=== PATIENT | male | born 1945 | race Caucasian/White ===

== ENCOUNTER 2020-11-14 12:32 | Outpatient (REF) | payer MEDICARE, SELFPAY ==
[2020-11-14 13:58] LABS: Alanine Aminotransferase 69 U/L (0-40); Anion Gap 15 (12-20); Aspartate Amino Transferase 47 U/L (5-37); Blood Urea Nitrogen 18 mg/dL (9-16); Carbon Dioxide 27 mmol/L (22-29); Chloride 100 mmol/L (96-108); Estimated Glomerular Filt Rate > 60; Potassium 4.1 mmol/l (3.3-5.1); Sodium 138 mmol/L (135-145)
== END 2020-11-14 12:33 | disposition home or self-care (01) ==
LOC: HO.10HDL 12:32
PROVIDERS: Visit Provider Family Medicine
DX: R35.0 Frequency of micturition (principal); K75.81 Nonalcoholic steatohepatitis (NASH)
CPT/HCPCS: 36415; 80051; 82565; 84450; 84460; 84520

== ENCOUNTER 2021-01-05 09:21 | Emergency (ER) | payer MEDICARE, SELFPAY ==
--- NOTE | ~2021-01-05 | XR_ITS ---
EXAMINATION: XR CHEST CLINICAL INFORMATION: SOB. COMPARISON: Chest 07/06/2014 TECHNIQUE: Frontal view of the chest was obtained. FINDINGS: The lungs are well-expanded and clear of acute pneumonic process. Incidental finding of a right azygos lobe noted. The heart size and pulmonary vascularity is normal. There are mediastinal jose and median sternotomy sutures from previous intervention. No gross bony abnormality seen. XR/XR chest 1V IMPRESSION: Unremarkable chest exam.
[2021-01-05 09:34] VITALS: BP 177/92; PULSE 82; RESP 16; TEMP 37.5; O2SAT 95; BMI 31.0
--- NOTE | 2021-01-05 10:01 | ECG_ITS ---
Test Reason : SOB Blood Pressure : / mmHG Vent. Rate : 060 BPM Atrial Rate : 060 BPM P-R Int : 162 ms QRS Dur : 094 ms QT Int : 464 ms P-R-T Axes : 058 044 061 degrees QTc Int : 464 ms Normal sinus rhythm Normal ECG When compared with ECG of 25-FEB-2012 08:26, No significant change was found Referred By: Shelly Naylor Electronically Signed By:RAYMOND CHAN MD
[2021-01-05 10:38] LABS: MANUAL DIFF FLAG NO
[2021-01-05 10:40] LABS: Basophils Percent Auto 0.2 % (0-2); Eosinophils Absolute Auto 0.1 X10*3/uL (0.0-0.4); Eosinophils Percent Auto 0.7 % (0-4); Hematocrit 42.9 % (42-52); Hemoglobin 14.6 g/dl (14.0-18.0); Imm Gran Abs Auto 0.02 X10*3/uL (0.00-0.03); Imm Gran Pct Auto 0.2 % (0.0-0.4); Lymphocytes Absolute Auto 2.3 X10*3/uL (1.2-4.9); Lymphocytes Percent Auto 27.9 % (20-40); Mean Corpuscular Hemoglobin 27.4 pg (27.0-33.0); Mean Corpuscular Volume 80.6 fL (80-98); Mean Platelet Volume 8.7 fL (9.4-12.4); Monocytes Absolute Auto 0.8 X10*3/uL (0.1-1.2); Monocytes Percent Auto 9.2 % (2-11); Neutrophils Percent Auto 61.8 % (45-73); Platelet Count 212 X10*3/uL (160-400); Red Blood Count 5.32 X10*6/uL (4.60-5.80); Red Cell Distribution Width 13.2 % (11.0-16.0); White Blood Count 8.1 X10*3/uL (4.8-10.8)
[2021-01-05 10:50] LABS: INTERNATIONAL NORM RATIO 1.1 (0.9-1.1)
--- NOTE | 2021-01-05 10:52 | ED_ITS ---
HPI - URI/Sore Throat General Chief Complaint: Dyspnea Stated Complaint: sob,phlegm Time Seen by Provider: 01/05/21 09:39 Source: patient Mode of arrival: ambulatory Limitations: no limitations History of Present Illness HPI Narrative: 75-year-old male with a past medical history of cardiovascular disease and hypertension presenting to the ED with complaints of a few days less than a week of nasal congestion, sore throat, productive cough with posttussive emesis and shortness of breath worse today. Reports associated frontal forehead headache. Nothing makes the headache better or worse. Denies recent travel or sick contacts. Denies dizziness, lightheadedness, changes in vision, trouble swallowing, chest pain, dyspnea on exertion, orthopnea, palpitations, any symptoms such as nausea/vomiting/abdominal pain/diarrhea or constipation, or lower extremity swelling. MD elicited complaint: cough, sore throat and nasal congestion Onset (ago): day(s) (Few days worse today) Consistency: constant Severity: moderate Description of mucous: clear, watery and yellow Able to tolerate fluids by mouth: Yes Exacerbating factors: swallowing and deep breaths Relieving factors: nothing Associated symptoms: headache, rhinorrhea, nasal congestion, sore throat, cough and shortness of breath Treatments prior to arrival: none Related Data Previous Rx's Medication Instructions Recorded doxycycline hyclate 100 mg PO BID 10 Days #20 tab 01/05/21 fluticasone propionate [Flonase 1 spray INTRANASAL BID 10 Days #16 01/05/21 Allergy Relief] g loratadine [Claritin] 10 mg PO DAILY PRN #10 tab 01/05/21 Allergies Allergy/AdvReac Type Severity Reaction Status Date / Time No Known Allergies Allergy Unverified 07/14/20 14:56 [No Known Allergies*] Review of Systems Review of Systems: Constitutional : No Fever, No Chills, No Night Sweats, No Fatigue, No Malaise, no history of PE or DVT, denies recent travel, ENT/Mouth : + Ear Pain, + Nasal Congestion, + Sinus Pain, + Sore throat, + Rhinorrhea, No Hoarseness, No Swallowing Difficulty, No Hearing loss Eyes: No Eye Pain, No Swelling, No Redness, No Foreign Body, No Discharge, No Vision Changes Cardiovascular : + SOB, No Chest Pain, no Dyspnea on Exertion, No Orthopnea, No Edema, No extremity swelling, No Palpitations Respiratory : + Cough, + Sputum, No Wheezing Gastrointestinal : No Nausea, No Vomiting, No Diarrhea, No abdominal Pain, No Hematochezia, No Melena Genitourinary : No irregular bleeding, No Dysuria, No Urinary Frequency, No Hematuria, No Urinary Incontinence, No Urgency, No Flank Pain, No Urinary Flow Changes, No Hesitancy Musculoskeletal : No joint pain, No Myalgias, No Joint Swelling Skin : No Skin Lesions, No rash Neuro : No Weakness, No Numbness, No Paresthesias, No Loss of Consciousness, No Dizziness, No Headache Psych : No Anxiety/Panic, No Depression, No SI/HI/AH/VH Heme/Lymph: No Bruising, No Bleeding,No Lymphadenopathy Endocrine : No Polyuria, No Polydipsia, No Temperature Intolerance Yes all other systems are reviewed and are negative [facility] Past Medical History Attestation statement: The following information was validated with the patient. Social History Social History Advance Directives: No Advance Directives Information Provided: No Physical Exam Vital Signs: Vital Signs: Last Vital Signs Temp 98.2 F 01/05/21 14:10 Pulse 60 01/05/21 14:10 Resp 14 01/05/21 14:10 BP 166/96 H 01/05/21 14:10 Pulse Ox 95 01/05/21 14:10 Body Mass Index 31.0 Vital signs have been reviewed as normal and appeared to be correct. Blood pressure hypertensive at 177/92. Heart rate normal. Respiration rate normal. Temperature normal. Oxygen saturation normal. Appearance: Alert. Oriented X3. No acute distress. Head: Normal external exam. Normocephalic. Atraumatic. Able to rotate head bilaterally. Eyes: PERRLA. EOMI. No nystagmus noted. Conjunctiva and sclera normal. Eyelids normal. Corneal reflex normal. ENT: EAC normal. TM's Normal. Hearing normal. Pharynx mildly erythematous otherwise no exudate noted. Uvula midline. tongue midline. Moist mucous membranes. No trismus noted. No drooling noted. No muffled voice noted. Neck: Normal inspection. Neck supple. FROM. No adenopathy. Thyroid Normal. No meningeal signs. No neck mass noted. CVS: Normal heart rate and rhythm. Heart sound normal. No murmurs noted. Pulses normal throughout. Respiratory: No respiratory distress. Painless inspiration. Breath sounds norm al. No wheezes/rales/rhonchi noted. Chest nontender. No accessory muscle usage noted or decreased air movement noted. Back: Full range of motion noted. Skin: Skin warm and dry. Normal skin color. Normal skin turgor. No rashes/lesions/lacerations noted. Extremities: No lower extremity edema noted. No calf tenderness noted. Extremities exhibit normal range of motion. Extremities nontender. Able to shrug shoulders bilaterally and keep up against resistance. Neuro: Oriented X 3. No motor deficit. No sensory deficit. Reflexes normal. Moving all extremities. No focal motor deficits. Cranial nerves II-XI intact bilaterally. Facial strength normal. Normal cognition. Speech normal. Gait normal. Strength 5/5 throughout. No pronator drift. No tremor noted. No fasciculations noted. Muscle tone normal throughout. Course Course Course Narrative: 10:30am - 75-year-old male with a past medical history of cardiovascular disease and hypertension presenting to the ED with complaints of a few days of intermittent frontal headaches nasal congestion, sore throat, productive cough with post tussive emesis and shortness of breath worse today. - on exam patient is alert and oriented x3. Not in any acute distress. Mildly hypertensive otherwise all other vitals are within normal limits. Neuro exam is within normal limits no focal neuro deficits noted. Lungs clear to auscultation. CV RRR. Abdomen is soft and nontender. No lower extremity edema or calf tenderness noted. - Labs, CXR, COVID/RSV/FLU SWAB, EKG and re-evaluate. Reevaluation(s) Reevaluation #1: - patient had an elevated troponin at 7.5 although negative delta after 3 hours at 7.8 - mild elevation AST/ALT and BUN otherwise all other labs are within normal limits. - COVID/RSV/flu negative. - UA within normal limits no evidence of UTI. - chest x-ray negative for any acute processes noted. - EKG normal sinus rhythm with ventricular rate of 60 with a normal WI interval normal QRS duration normal QT/QTC interval no acute ischemic changes and similar when compared to prior EKG 02/25/2012. - therefore patient most likely bronchitis/sinus infection. Will DC home with antibiotics and symptomatic treatment along with instructions return if any new or worsening symptoms to follow up with primary care provider. Patient understands agrees with this plan. Time: 14:35 MDM - URI/Sore Throat Medical Records Attestation: I reviewed the patient's medical records. Lab Data Attestation: I reviewed the patient's lab results. Result diagrams: 01/05/21 10:32 01/05/21 10:32 Labs: Lab Results 01/05/21 01/05/21 01/05/21 Range/Units 10:32 10:32 10:32 WBC 8.1 (4.8-10.8) X10*3/uL RBC 5.32 (4.60-5.80) X10*6/uL Hgb 14.6 (14.0-18.0) g/dl Hct 42.9 (42-52) % MCV 80.6 (80-98) fL MCH 27.4 (27.0-33.0) pg MCHC 34.0 (31.0-36.0) g/dl RDW 13.2 (11.0-16.0) % Plt Count 212 (160-400) X10*3/uL MPV 8.7 L (9.4-12.4) fL Immature Gran % (Auto) 0.2 (0.0-0.4) % Neut % (Auto) 61.8 (45-73) % Lymph % (Auto) 27.9 (20-40) % Mercer % (Auto) 9.2 (2-11) % Eos % (Auto) 0.7 (0-4) % Baso % (Auto) 0.2 (0-2) % Lymph # (Auto) 2.3 (1.2-4.9) X10*3/uL Mercer # (Auto) 0.8 (0.1-1.2) X10*3/uL Eos # (Auto) 0.1 (0.0-0.4) X10*3/uL Baso # (Auto) 0.0 (0.0-0.2) X10*3/uL Abs Immat Gran (auto) 0.02 (0.00-0.03) X10*3/uL Absolute Neuts (auto) 5.0 (2.0-8.3) X10*3/uL Absolute Nucleated RBC 0.000 (0.0-0.012) X10*3/uL Nucleated RBC % (auto) 0.0 (0.0-0.2) /100WBC PT 13.0 (10.8-13.0) SEC INR 1.1 (0.9-1.1) D-Dimer < 200 NG/ML Sodium 140 (135-145) mmol/L Potassium 4.1 (3.3-5.1) mmol/L Chloride 102 (96-108) mmol/L Carbon Dioxide 28 (22-29) mmol/L Anion Gap 14 (12-20) BUN 20 H (9-16) mg/dL Creatinine 0.95 (0.5-1.4) mg/dL Estim Creat Clear Calc 78.8 Estimated GFR > 60 Random Glucose 127 H (60-115) mg/dL Calcium 9.2 (8.4-10.2) mg/dL Magnesium 1.8 (1.6-2.6) mg/dL Ferritin (20-250) ng/mL Total Bilirubin 0.7 (0.0-1.0) mg/dL Direct Bilirubin 0.3 (0.0-0.5) mg/dL AST 59 H (5-37) U/L ALT 68 H (0-40) U/L Alkaline Phosphatase 82 (39-117) U/L Lactate Dehydrogenase 204 (118-273) U/L Troponin I High Sens (<3.5-35.0) ng/L C-Reactive Protein 0.33 (< or = 0.50) mg/dL B-Natriuretic Peptide (<100) pg/mL Total Protein 7.0 (6.5-8.0) g/dL Albumin 4.2 (3.5-5.0) g/dL Procalcitonin ng/mL Urine Color Urine Appearance Urine pH (5.0-8.0) Ur Specific Eckerman (1.005-1.025) Urine Protein (NEG-TRACE) MG/DL Urine Glucose (UA) (NEG) MG/DL Urine Ketones (NEG) MG/DL Urine Blood (NEG) Urine Nitrite (NEG) Ur Leukocyte Esterase (NEG) Coronavirus (PCR) (Negative) Influenza Type A (PCR) (Negative) Influenza Type B (PCR) (Negative) RSV RNA Qual (PCR) (Negative) 01/05/21 01/05/21 01/05/21 Range/Units 10:32 10:32 10:32 WBC (4.8-10.8) X10*3/uL RBC (4.60-5.80) X10*6/uL Hgb (14.0-18.0) g/dl Hct (42-52) % MCV (80-98) fL MCH (27.0-33.0) pg MCHC (31.0-36.0) g/dl RDW (11.0-16.0) % Plt Count (160-400) X10*3/uL MPV (9.4-12.4) fL Immature Gran % (Auto) (0.0-0.4) % Neut % (Auto) (45-73) % Lymph % (Auto) (20-40) % Mercer % (Auto) (2-11) % Eos % (Auto) (0-4) % Baso % (Auto) (0-2) % Lymph # (Auto) (1.2-4.9) X10*3/uL Mercer # (Auto) (0.1-1.2) X10*3/uL Eos # (Auto) (0.0-0.4) X10*3/uL Baso # (Auto) (0.0-0.2) X10*3/uL Abs Immat Gran (auto) (0.00-0.03) X10*3/uL Absolute Neuts (auto) (2.0-8.3) X10*3/uL Absolute Nucleated RBC (0.0-0.012) X10*3/uL Nucleated RBC % (auto) (0.0-0.2) /100WBC PT (10.8-13.0) SEC INR (0.9-1.1) D-Dimer NG/ML Sodium (135-145) mmol/L Potassium (3.3-5.1) mmol/L Chloride (96-108) mmol/L Carbon Dioxide (22-29) mmol/L Anion Gap (12-20) BUN (9-16) mg/dL Creatinine (0.5-1.4) mg/dL Estim Creat Clear Calc Estimated GFR Random Glucose (60-115) mg/dL Calcium (8.4-10.2) mg/dL Magnesium (1.6-2.6) mg/dL Ferritin 220 (20-250) ng/mL Total Bilirubin (0.0-1.0) mg/dL Direct Bilirubin (0.0-0.5) mg/dL AST (5-37) U/L ALT (0-40) U/L Alkaline Phosphatase (39-117) U/L Lactate Dehydrogenase (118-273) U/L Troponin I High Sens 7.5 (<3.5-35.0) ng/L C-Reactive Protein (< or = 0.50) mg/dL B-Natriuretic Peptide 83 (<100) pg/mL Total Protein (6.5-8.0) g/dL Albumin (3.5-5.0) g/dL Procalcitonin ng/mL Urine Color Urine Appearance Urine pH (5.0-8.0) Ur Specific Eckerman (1.005-1.025) Urine Protein (NEG-TRACE) MG/DL Urine Glucose (UA) (NEG) MG/DL Urine Ketones (NEG) MG/DL Urine Blood (NEG) Urine Nitrite (NEG) Ur Leukocyte Esterase (NEG) Coronavirus (PCR) NEGATIVE (Negative) Influenza Type A (PCR) NEGATIVE (Negative) Influenza Type B (PCR) NEGATIVE (Negative) RSV RNA Qual (PCR) NEGATIVE (Negative) 01/05/21 01/05/21 01/05/21 Range/Units 10:32 12:03 13:45 WBC (4.8-10.8) X10*3/uL RBC (4.60-5.80) X10*6/uL Hgb (14.0-18.0) g/dl Hct (42-52) % MCV (80-98) fL MCH (27.0-33.0) pg MCHC (31.0-36.0) g/dl RDW (11.0-16.0) % Plt Count (160-400) X10*3/uL MPV (9.4-12.4) fL Immature Gran % (Auto) (0.0-0.4) % Neut % (Auto) (45-73) % Lymph % (Auto) (20-40) % Mercer % (Auto) (2-11) % Eos % (Auto) (0-4) % Baso % (Auto) (0-2) % Lymph # (Auto) (1.2-4.9) X10*3/uL Mercer # (Auto) (0.1-1.2) X10*3/uL Eos # (Auto) (0.0-0.4) X10*3/uL Baso # (Auto) (0.0-0.2) X10*3/uL Abs Immat Gran (auto) (0.00-0.03) X10*3/uL Absolute Neuts (auto) (2.0-8.3) X10*3/uL Absolute Nucleated RBC (0.0-0.012) X10*3/uL Nucleated RBC % (auto) (0.0-0.2) /100WBC PT (10.8-13.0) SEC INR (0.9-1.1) D-Dimer NG/ML Sodium (135-145) mmol/L Potassium (3.3-5.1) mmol/L Chloride (96-108) mmol/L Carbon Dioxide (22-29) mmol/L Anion Gap (12-20) BUN (9-16) mg/dL Creatinine (0.5-1.4) mg/dL Estim Creat Clear Calc Estimated GFR Random Glucose (60-115) mg/dL Calcium (8.4-10.2) mg/dL Magnesium (1.6-2.6) mg/dL Ferritin (20-250) ng/mL Total Bilirubin (0.0-1.0) mg/dL Direct Bilirubin (0.0-0.5) mg/dL AST (5-37) U/L ALT (0-40) U/L Alkaline Phosphatase (39-117) U/L Lactate Dehydrogenase (118-273) U/L Troponin I High Sens 7.8 (<3.5-35.0) ng/L C-Reactive Protein (< or = 0.50) mg/dL B-Natriuretic Peptide (<100) pg/mL Total Protein (6.5-8.0) g/dL Albumin (3.5-5.0) g/dL Procalcitonin 0.07 ng/mL Urine Color YELLOW Urine Appearance CLEAR Urine pH 6.0 (5.0-8.0) Ur Specific Eckerman 1.020 (1.005-1.025) Urine Protein TRACE (NEG-TRACE) MG/DL Urine Glucose (UA) NEG (NEG) MG/DL Urine Ketones NEG (NEG) MG/DL Urine Blood NEG (NEG) Urine Nitrite NEG (NEG) Ur Leukocyte Esterase NEG (NEG) Coronavirus (PCR) (Negative) Influenza Type A (PCR) (Negative) Influenza Type B (PCR) (Negative) RSV RNA Qual (PCR) (Negative) Imaging Data Chest x-ray: Attestation: I personally reviewed and interpreted this imaging study as follows: Radiologist's impression: FINDINGS: The lungs are well-expanded and clear of acute pneumonic process. Incidental finding of a right azygos lobe noted. The heart size and pulmonary vascularity is normal. There are mediastinal jose and median sternotomy sutures from previous intervention. No gross bony abnormality seen. XR/XR chest 1V IMPRESSION: Unremarkable chest exam. ECG Data Attestation: I personally reviewed and interpreted this ECG as follows: ECG interpretation date: 01/05/21 ECG interpretation time: 11:12 Interpretation: EKG normal sinus rhythm with ventricular rate of 60 with a normal WI interval normal QRS duration normal QT/QTC interval no acute ischemic changes and similar when compared to prior EKG 02/25/2012. Discharge Plan Discharge Clinical Impression: Bronchitis, Sinusitis Patient Disposition: Home, Self-Care Instructions: Sinusitis (ED), Acute Bronchitis (ED) Prescriptions: New doxycycline hyclate 100 mg tablet 100 mg PO BID 10 Days Qty: 20 RF: 0 loratadine [Claritin] 10 mg tablet 10 mg PO DAILY PRN (Reason: allergies) Qty: 10 RF: 0 fluticasone propionate [Flonase Allergy Relief] 50 mcg/actuation spray,suspension 1 spray intranasal BID 10 Days Qty: 16 RF: 0 Referrals: Mo Miranda MD [Primary Care Provider] - 2 days Print Language: Bolivian
[2021-01-05 10:55] LABS: D Dimer < 200 NG/ML
[2021-01-05 11:13] LABS: Alanine Aminotransferase 68 U/L (0-40); Albumin Level 4.2 g/dL (3.5-5.0); Alkaline Phosphatase 82 U/L (39-117); Anion Gap 14 (12-20); Aspartate Amino Transferase 59 U/L (5-37); Bilirubin Direct 0.3 mg/dL (0.0-0.5); Bilirubin Total 0.7 mg/dL (0.0-1.0); Blood Urea Nitrogen 20 mg/dL (9-16); C Reactive Protein 0.33 mg/dL (< or = 0.50); Calcium 9.2 mg/dL (8.4-10.2); Carbon Dioxide 28 mmol/L (22-29); Chloride 102 mmol/L (96-108); Creatinine Clr Calc Pharmacy 78.8; Estimated Glomerular Filt Rate > 60; Glucose Random 127 mg/dL (60-115); Lactate Dehydrogenase 204 U/L (118-273); Magnesium 1.8 mg/dL (1.6-2.6); Potassium 4.1 mmol/L (3.3-5.1); Sodium 140 mmol/L (135-145)
[2021-01-05 11:17] LABS: B Type Natriuretic Peptide 83 pg/mL (<100); Troponin-I High Sensitivity 7.5 ng/L (<3.5-35.0)
[2021-01-05 11:25] LABS: Influenza A PCR NEGATIVE (Negative); Influenza B PCR NEGATIVE (Negative); Resp Syncy Virus RNA Qual PCR NEGATIVE (Negative); SARS COV2 PCR INHOUSE NEGATIVE (Negative)
[2021-01-05 12:01] LABS: Ferritin 220 ng/mL (20-250)
[2021-01-05 12:20] LABS: Glucose Urine UA NEG (NEG); Leukocyte Esterase Urine NEG (NEG); Nitrite Urine NEG (NEG); Urine Blood NEG (NEG); Urine Ketones NEG (NEG); Urine Protein TRACE MG/DL (NEG-TRACE)
[2021-01-05 12:21] LABS: Procalcitonin 0.07 ng/mL
[2021-01-05 12:25] LABS: Appearance Urine CLEAR; Color Urine YELLOW
[2021-01-05 12:55] VITALS: BP 143/73; PULSE 57; RESP 12; TEMP 36.7; O2SAT 95
[2021-01-05 14:10] VITALS: BP 166/96; PULSE 60; RESP 14; TEMP 36.8; O2SAT 95
[2021-01-05 14:30] LABS: Troponin-I High Sensitivity 7.8 ng/L (<3.5-35.0)
== END 2021-01-05 15:07 | disposition home or self-care (01) ==
PROVIDERS: Physician Assistant Medical; Emergency Provider Emergency Medicine Emergency Medical Services; PCP Family Medicine
DX: J20.9 Acute bronchitis, unspecified (principal); J32.9 Chronic sinusitis, unspecified; Z20.822 Contact with and (suspected) exposure to COVID-19; I10 Essential (primary) hypertension; J02.9 Acute pharyngitis, unspecified; R91.8 Other nonspecific abnormal finding of lung field; Q33.1 Accessory lobe of lung
CPT/HCPCS: 0241U; 36415; 71045; 80048; 80076; 81003; 82728; 83615; 83735; 83880; 84145; 84484; 85025; 85379; 85610; 86140; 93005; 99283; 99284

== ENCOUNTER 2021-09-28 12:43 | Outpatient (REF) | payer MEDICARE, SELFPAY ==
[2021-09-28 14:37] LABS: Alanine Aminotransferase 39 U/L (0-40); Anion Gap 14 (12-20); Blood Urea Nitrogen 22 mg/dL (9-16); Carbon Dioxide 25 mmol/L (22-29); Chloride 105 mmol/L (96-108); Estimated Glomerular Filt Rate > 60; Sodium 140 mmol/L (135-145)
== END 2021-09-28 12:44 | disposition home or self-care (01) ==
LOC: HO.10HDL 12:43
PROVIDERS: Visit Provider Family Medicine
DX: I10 Essential (primary) hypertension (principal)
CPT/HCPCS: 36415; 80051; 82550; 82565; 84460; 84520

== ENCOUNTER 2022-03-06 10:56 | Outpatient (REF) | payer MEDICARE, SELFPAY ==
[2022-03-06 15:27] LABS: Hematocrit 27.8 % (42.0-52.0); Hemoglobin 8.2 g/dl (14.0-18.0); Mean Corpuscular HGB Conc 29.5 g/dl (31.0-36.0); Mean Corpuscular Hemoglobin 22.4 pg (27.0-33.0); Mean Platelet Volume 9.1 fL (9.4-12.4); Platelet Count 362 X10*3/uL (160-400); Red Blood Count 3.66 X10*6/uL (4.60-5.80); Red Cell Distribution Width 15.9 % (11.0-16.0); White Blood Count 11.9 X10*3/uL (4.8-10.8)
[2022-03-06 15:36] LABS: INTERNATIONAL NORM RATIO 0.9 (0.9-1.1); Prothrombin Time 10.7 SEC (9.9-13.0)
[2022-03-06 15:48] LABS: Anion Gap 15 (12-20); Blood Urea Nitrogen 25 mg/dL (9-16); Calcium 8.8 mg/dL (8.4-10.2); Carbon Dioxide 20 mmol/L (22-29); Chloride 109 mmol/L (96-108); Estimated Glomerular Filt Rate > 60; Glucose Random 109 mg/dL (60-115); Potassium 4.3 mmol/L (3.3-5.1); Sodium 140 mmol/L (135-145)
== END 2022-03-06 10:57 | disposition home or self-care (01) ==
LOC: HO.LAB 10:56
PROVIDERS: PCP Family Medicine; Referring Provider Family Medicine; Visit Provider Internal Medicine
DX: R07.2 Precordial pain (principal); I25.10 Atherosclerotic heart disease of native coronary artery without angina pectoris; I10 Essential (primary) hypertension; E78.5 Hyperlipidemia, unspecified; G47.33 Obstructive sleep apnea (adult) (pediatric); Z99.89 Dependence on other enabling machines and devices; Z95.1 Presence of aortocoronary bypass graft
CPT/HCPCS: 36415; 80048; 85027; 85610; 93005; 99202

== ENCOUNTER 2022-03-07 12:54 | Outpatient (REF) | payer MEDICARE, SELFPAY ==
[2022-03-07 13:20] LABS: MANUAL DIFF FLAG NO
[2022-03-07 13:26] LABS: Basophils Absolute Auto 0.1 X10*3/uL (0.0-0.2); Basophils Percent Auto 0.5 % (0-2); Eosinophils Absolute Auto 0.1 X10*3/uL (0.0-0.4); Eosinophils Percent Auto 1.1 % (0-4); Hematocrit 26.8 % (42.0-52.0); Hemoglobin 7.9 g/dl (14.0-18.0); Imm Gran Abs Auto 0.05 X10*3/uL (0.00-0.03); Imm Gran Pct Auto 0.5 % (0.0-0.4); Lymphocytes Absolute Auto 3.3 X10*3/uL (1.2-4.9); Lymphocytes Percent Auto 29.8 % (20-40); Mean Corpuscular HGB Conc 29.5 g/dl (31.0-36.0); Mean Corpuscular Hemoglobin 22.2 pg (27.0-33.0); Mean Corpuscular Volume 75.3 fL (80.0-98.0); Mean Platelet Volume 8.9 fL (9.4-12.4); Monocytes Absolute Auto 1.3 X10*3/uL (0.1-1.2); Monocytes Percent Auto 11.7 % (2-11); Neutrophils Absolute Auto 6.2 x10*3/uL (2.0-8.3); Neutrophils Percent Auto 56.4 % (45-73); Platelet Count 319 X10*3/uL (160-400); Red Blood Count 3.56 X10*6/uL (4.60-5.80); Red Cell Distribution Width 16.2 % (11.0-16.0)
[2022-03-07 13:48] LABS: Blood Urea Nitrogen 25 mg/dL (9-16); Estimated Glomerular Filt Rate > 60; Iron 26 mcg/dL (45-160); Percent Iron Saturation 6 % (15-50); Total Iron Binding Capacity 440 mcg/dL (228-428); Unsaturated Iron Binding 414 ug/dL
[2022-03-07 14:09] LABS: Ferritin 12 ng/mL (20-250)
[2022-03-07 14:13] LABS: Erythrocyte Sedimentation Rate 20 MM/HR (0-15)
[2022-03-07 14:30] LABS: Folate > 20.0 ng/mL (> or = 4.0); Vitamin B12 201 pg/mL (200-900)
== END 2022-03-07 12:55 | disposition home or self-care (01) ==
LOC: HO.LAB 12:54
PROVIDERS: Absent Provider Internal Medicine; PCP Family Medicine; Visit Provider Family Medicine
DX: D64.9 Anemia, unspecified (principal); R63.4 Abnormal weight loss
CPT/HCPCS: 36415; 82378; 82565; 82607; 82728; 82746; 83540; 84520; 85025; 85652

== ENCOUNTER 2022-03-08 08:59 | Outpatient (REF) | payer MEDICARE, SELFPAY ==
--- NOTE | ~2022-03-08 | CT_ITS ---
EXAMINATION: CT ABDOMEN AND PELVIS WITH CONTRAST CLINICAL INFORMATION: Rectal bleed. COMPARISON: None TECHNIQUE: Multidetector volumetric images were obtained from the superior aspect of the liver through the pubic symphysis following administration 85 mL of Omnipaque 350 intravenous contrast. Sagittal and coronal reformatted images were obtained on the technologist's workstation. Oral contrast: No. This CT examination was performed using dose optimization techniques as appropriate, variously including the following: *Automated exposure control *Adjustment of mA and/or kV according to patient size (this includes techniques or standardized protocols for targeted exams where dose is matched to indication/reason for exam; i.e. extremities or head) *Use of iterative reconstruction technique DLP: 481 mGy-cm FINDINGS: LUNG BASES: There are small bilateral pleural effusions with mild atelectatic changes in both lung bases. The heart size is normal. There are coronary artery calcifications present. No pericardial effusion seen. LIVER, GALLBLADDER, AND BILIARY TREE: The liver is normal in size, shape, and diffuse hypo-attenuation. There is a 1 cm left hepatic lobe lesion, likely hemangioma. The gallbladder is unremarkable with no evidence of radiopaque gallstones, gallbladder wall thickening, or obvious pericholecystic inflammatory changes. PANCREAS: Unremarkable. SPLEEN: Unremarkable. ADRENAL GLANDS: Unremarkable. KIDNEYS AND URETERS: The kidneys are normal in size, shape, and attenuation. No hydronephrosis, hydroureter, or calculi seen. No perinephric stranding. There are several small cortical nonenhancing lesions in the upper and midpole left kidney in the range of 7-9 mm suggestive of simple cysts. BLADDER: Unremarkable. GASTROINTESTINAL TRACT: The large bowel appears unremarkable. Especially, there is no abnormality seen in the rectum or the sigmoid colon. There is no fat stranding or free fluid. The small bowel loops are normal caliber. The appendix is not visualized. ABDOMINAL WALL: No significant hernia is appreciated. LYMPH NODES: Normal. VASCULAR: Unremarkable. PELVIC VISCERA: There is mild fat stranding seen in the left pelvis, nonspecific. No free fluid. No abnormal pelvic or inguinal lymph nodes seen or inguinal hernia. OSSEOUS STRUCTURES: Unremarkable. CT/CT abdomen pelvis w con IMPRESSION: No evidence of any mass or mural thickening involving the colon especially the sigmoid colon or the rectal region. There are no abnormal lymph nodes in the pelvis or the retroperitoneum. Likely small punctate cysts upper and midpole right kidney. Fleischner guidelines were followed.
[2022-03-08] MEDS: iohexoL 350 MG/ML 100 ML INFUS..BTL IV (10:15)
== END 2022-03-08 09:00 | disposition home or self-care (01) ==
LOC: HO.CT 08:59
PROVIDERS: PCP Family Medicine; Visit Provider Family Medicine
DX: K62.5 Hemorrhage of anus and rectum (principal)
CPT/HCPCS: 74177; Q9967

== ENCOUNTER 2022-03-13 07:25 | Outpatient (REF) | payer MEDICARE, SELFPAY ==
[2022-03-13 08:03] LABS: Hematocrit 28.6 % (42.0-52.0); Hemoglobin 8.1 g/dl (14.0-18.0); Mean Corpuscular HGB Conc 28.3 g/dl (31.0-36.0); Mean Corpuscular Hemoglobin 21.8 pg (27.0-33.0); Mean Corpuscular Volume 77.1 fL (80.0-98.0); Mean Platelet Volume 8.9 fL (9.4-12.4); Platelet Count 227 X10*3/uL (160-400); Red Blood Count 3.71 X10*6/uL (4.60-5.80); Red Cell Distribution Width 18.5 % (11.0-16.0); White Blood Count 9.2 X10*3/uL (4.8-10.8)
== END 2022-03-13 07:26 | disposition home or self-care (01) ==
LOC: HO.MDS 07:25
PROVIDERS: Visit Provider Family Medicine
DX: D50.9 Iron deficiency anemia, unspecified (principal); I20.9 Angina pectoris, unspecified; R06.02 Shortness of breath
CPT/HCPCS: 36415; 36430; 85027; 86850; 86900; 86901; 86923

== ENCOUNTER 2022-03-13 15:48 | Observation (INO) | payer MEDICARE, SELFPAY ==
--- NOTE | 2022-03-13 | ECG_ITS ---
Test Reason : chest tightness/sob Blood Pressure : / mmHG Vent. Rate : 081 BPM Atrial Rate : 081 BPM P-R Int : 160 ms QRS Dur : 088 ms QT Int : 414 ms P-R-T Axes : 038 022 041 degrees QTc Int : 480 ms Normal sinus rhythm Prolonged QT Abnormal ECG When compared with ECG of 13-MAR-2022 15:52, Nonspecific T wave abnormality, improved in Inferior leads Referred By: Migel Hoyt Electronically Signed By:MELISSA CORDOVA
--- NOTE | 2022-03-13 | ECG_ITS ---
Test Reason : CP Blood Pressure : / mmHG Vent. Rate : 073 BPM Atrial Rate : 073 BPM P-R Int : 102 ms QRS Dur : 084 ms QT Int : 418 ms P-R-T Axes : -21 -02 147 degrees QTc Int : 460 ms Artfact in tracing Sinus rhythm with short MD Low voltage QRS Possible Inferior infarct , age undetermined Abnormal ECG When compared with ECG of 05-JAN-2021 11:12, Nonspecific T wave abnormality now evident in Inferior leads Nonspecific T wave abnormality now evident in Lateral leads Referred By: Generic ED Physician Electronically Signed By:MELISSA CORDOVA
--- NOTE | ~2022-03-13 | XR_ITS ---
EXAMINATION: XR CHEST CLINICAL INFORMATION: Chest pain, shortness of breath COMPARISON: Chest radiographs 01/05/2021, 07/06/2014, CT abdomen 03/08/2022 TECHNIQUE: Portable upright AP view of the chest was obtained. FINDINGS: There is lobulated high attenuation density at the right medial apex similar to prior exam likely calcified right first costochondral junction. 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 There is no lobar or segmental airspace consolidation or groundglass opacity. No pneumothorax. There are postsurgical changes with mediastinal clips and sternotomy wires. The vascularity is normal. The heart is normal in size. There is tapering at the cardiophrenic angle consistent with areolar tissue on CT. Mild blunting of the costophrenic angles is consistent with the small effusions on CT. XR/XR chest 1V IMPRESSION: -No lobar or segmental airspace consolidation. -Prior median sternotomy. Vascularity normal. -Borderline blunting costophrenic angles consistent with small effusions on recent CT.
[2022-03-13 16:07] VITALS: BP 163/92; PULSE 74; RESP 17; TEMP 36.6; O2SAT 95; BMI 30.4
--- NOTE | 2022-03-13 16:21 | PC.NURSE ---
pt a&ox3, vss, dependency counselor applied - sinus rhythm. provider in room w pt.
--- NOTE | 2022-03-13 16:22 | ED_ITS ---
HPI - General Adult General Chief complaint: General Medical Stated complaint: chest pain Time Seen by Provider: 03/13/22 15:59 Source: patient Mode of arrival: wheelchair Limitations: no limitations History of Present Illness HPI narrative: Patient comes to the emergency room from the short-stay surgery suite. Today, patient got a blood transfusion. As patient was getting dressed, patient developed chest pain and was sent to the emergency room. Patient states that for several months he has been having chest pain with exertion. Patient has been evaluated by Dr. Carmona, he was seen on March 07, plan is that patient needs a cardiac catheterization. Also, patient states that he has been having black stool for several weeks. Patient was already evaluated by his primary care physician, CT scan was ordered, but did not show any acute pathology. This is the reason that patient received a blood transfusion. Patient states that every day he gets chest pain with minor exertion. Today before his transfusion, patient was walking from his Hoc are towards the short-stay surgery, patient is to take a break because he had chest pain then. Chest pain subsides with rest. Related Data Home Medications Medication Instructions Recorded Confirmed aspirin 81 mg tablet,delayed 81 mg PO BEDTIME 03/06/22 03/13/22 release atorvastatin 40 mg tablet 40 mg PO DAILY tab 03/06/22 03/13/22 fluoxetine 40 mg capsule 40 mg PO DAILY cap 03/06/22 03/13/22 hydrochlorothiazide 12.5 mg tablet 12.5 mg PO DAILY tab 03/06/22 03/13/22 isosorbide mononitrate 30 mg 30 mg PO DAILY tab 03/06/22 03/13/22 tablet,extended release 24 hr metoprolol tartrate 50 mg tablet 50 mg PO BID tab 03/06/22 03/13/22 nitroglycerin 0.4 mg sublingual 0.4 mg SUBLINGUAL Q5M PRN tab 03/06/22 03/13/22 tablet omeprazole 20 mg capsule,delayed 20 mg PO BID cap 03/06/22 03/13/22 release ferrous sulfate 325 mg (65 mg 325 mg PO DAILY 03/13/22 03/13/22 iron) tablet multivitamin 1 tab PO DAILY 03/13/22 03/13/22 Allergies Allergy/AdvReac Type Severity Reaction Status Date / Time No Known Allergies Allergy Verified 03/13/22 16:07 [No Known Allergies*] Review of Systems Review of Systems: Constitutional : No Weight loss, No Fever, No Chills, No Night Sweats, No Fatigue, No Malaise ENT/Mouth : No Hearing loss, No Ear Pain, No Nasal Congestion, No Sinus Pain, No Hoarseness, No sore throat, No Rhinorrhea, No Swallowing Difficulty Eyes: No Eye Pain, No Swelling, No Redness, No Foreign Body, No Discharge, No Vision Changes Cardiovascular : Sharp chest pain with exertion, worsening shortness of breath on Exertion, worsening Orthopnea, 2 weeks of worsening lower extremity edema bilaterally Respiratory : No Cough, No Sputum, No Wheezing, No Smoke Exposure, No Dyspnea Gastrointestinal : No Nausea, No Vomiting, No Diarrhea, No Constipation, No abdominal Pain, complaining of several weeks of black stool, known to have GI bleed Genitourinary : no irregular bleeding, No Dysuria, No Urinary Frequency, No Hematuria, No Urinary Incontinence, No Urgency, No Flank Pain, No Urinary Flow Changes, No Hesitancy Musculoskeletal : No joint pain, No Myalgias, No Joint Swelling Skin : No Skin Lesions, No rash Neuro : No Weakness, No Numbness, No Paresthesias, No Loss of Consciousness, No Dizziness, No Headache Psych : No Anxiety/Panic, No Depression, No SI/HI/AH/VH, No Social Issues, Heme/Lymph: No Bruising, No Bleeding,No Lymphadenopathy Endocrine : No Polyuria, No Polydipsia, No Temperature Intolerance [facility] Past Medical History Medical History Atherosclerotic cardiovascular disease Essential hypertension Obstructive sleep apnea on CPAP Other and unspecified hyperlipidemia Prostate cancer Surgical History History of coronary artery bypass graft x 3 (~2003) Status post coronary artery bypass graft Family History Family History (Updated 03/06/22 @ 11:16 by SP Stringer) Father No problems noted. Mother No problems noted. Social History Social History (Updated 03/06/22 @ 11:15 by SP Stringer) Alcohol intake: former Patient Tobacco Use Status: Former Tobacco user Quit Date: quit 30-40 years ago Use of substances other than those prescribed or required for medical reasons: No Advance Directives: No Advance Directives Information Provided: No Physical Exam ED Vital Signs: Vital Signs - 24 hr 03/13/22 16:07 03/13/22 18:00 03/13/22 18:15 Temperature 98 F 98.1 F Pulse Rate 74 71 77 Respiratory Rate 17 18 20 Blood Pressure 163/92 H 152/59 H 165/81 H Pulse Oximetry 95 95 BMI result Body Mass Index 30.4 Const Other: Appearance: Alert. Oriented X3. No acute distress. Eyes: Pupils equal, round and reactive to light. ENT: Pharynx normal. Neck: Normal inspection. Neck supple. No lymph nodes noted. No crepitus CVS: Normal heart rate and rhythm. Pulses normal. Normal S1 and S2 Respiratory: No respiratory distress. Breath sounds normal. No Wheezing. No rales Abdomen: Soft and nontender. No rigidity. No distention. Skin: Skin warm and dry. Normal skin color. Normal skin turgor. Extremities: +2 pitting edema bilaterally Neuro: Oriented X 3. No motor deficit. No sensory deficit. Moving all extremities. No slurred speech. CN 2 through 12 grossly intact Psych: calm, cooperative, normal affect Course Course Course Narrative: Will go ahead and recheck labs, troponin, EKG. Then we will consult Cardiology. At this time, patient's vitals are stable, patient is asymptomatic. We received records from Dr. Owens's office and also spoke to him directly. A rectal exam was done in his office, guaiac negative. Today, patient declined another rectal exam, but is willing to give a stool sample. I discussed the patient with Dr. Carmona, troponin flat, EKG does not show any acute pathology. No heparin needed. I discussed the patient with Dr. Hoyt, patient will be admitted. Patient remains asymptomatic with stable vitals. Stool sample still pending Medical Decision Making Lab Data Result diagrams: 03/13/22 18:12 03/13/22 17:20 Labs: Lab Results 03/13/22 03/13/22 03/13/22 Range/Units 17:10 17:10 17:11 WBC (4.8-10.8) X10*3/uL RBC (4.60-5.80) X10*6/uL Hgb (14.0-18.0) g/dl Hct (42.0-52.0) % MCV (80.0-98.0) fL MCH (27.0-33.0) pg MCHC (31.0-36.0) g/dl RDW (11.0-16.0) % Plt Count (160-400) X10*3/uL MPV (9.4-12.4) fL Immature Gran % (Auto) (0.0-0.4) % Neut % (Auto) (45-73) % Lymph % (Auto) (20-40) % [place] % (Auto) (2-11) % Eos % (Auto) (0-4) % Baso % (Auto) (0-2) % Lymph # (Auto) (1.2-4.9) X10*3/uL [place] # (Auto) (0.1-1.2) X10*3/uL Eos # (Auto) (0.0-0.4) X10*3/uL Baso # (Auto) (0.0-0.2) X10*3/uL Abs Immat Gran (auto) (0.00-0.03) X10*3/uL Absolute Neuts (auto) (2.0-8.3) x10*3/uL Absolute Nucleated RBC (0.0-0.012) X10*3/uL Nucleated RBC % (auto) (0.0-0.2) /100WBC PT (9.9-13.0) SEC INR (0.9-1.1) Sodium (135-145) mmol/L Potassium (3.3-5.1) mmol/L Chloride (96-108) mmol/L Carbon Dioxide (22-29) mmol/L Anion Gap (12-20) BUN (9-16) mg/dL Creatinine (0.5-1.4) mg/dL Estim Creat Clear Calc Estimated GFR Random Glucose (60-115) mg/dL Calcium (8.4-10.2) mg/dL Magnesium (1.6-2.6) mg/dL Total Bilirubin (0.0-1.0) mg/dL Direct Bilirubin (0.0-0.5) mg/dL AST (5-37) U/L ALT (0-40) U/L Alkaline Phosphatase (39-117) U/L Troponin I High Sens 9.8 (<3.5-35.0) ng/L B-Natriuretic Peptide 357 H (<100) pg/mL Total Protein (6.5-8.0) g/dL Albumin (3.5-5.0) g/dL Ethyl Alcohol mg/dL COVID-19 ([facility]) Negative (Negative) COVID-19 Clin Com See Note 03/13/22 03/13/22 03/13/22 Range/Units 17:20 17:20 17:20 WBC (4.8-10.8) X10*3/uL RBC (4.60-5.80) X10*6/uL Hgb (14.0-18.0) g/dl Hct (42.0-52.0) % MCV (80.0-98.0) fL MCH (27.0-33.0) pg MCHC (31.0-36.0) g/dl RDW (11.0-16.0) % Plt Count (160-400) X10*3/uL MPV (9.4-12.4) fL Immature Gran % (Auto) (0.0-0.4) % Neut % (Auto) (45-73) % Lymph % (Auto) (20-40) % [place] % (Auto) (2-11) % Eos % (Auto) (0-4) % Baso % (Auto) (0-2) % Lymph # (Auto) (1.2-4.9) X10*3/uL [place] # (Auto) (0.1-1.2) X10*3/uL Eos # (Auto) (0.0-0.4) X10*3/uL Baso # (Auto) (0.0-0.2) X10*3/uL Abs Immat Gran (auto) (0.00-0.03) X10*3/uL Absolute Neuts (auto) (2.0-8.3) x10*3/uL Absolute Nucleated RBC (0.0-0.012) X10*3/uL Nucleated RBC % (auto) (0.0-0.2) /100WBC PT 12.2 (9.9-13.0) SEC INR 1.1 (0.9-1.1) Sodium 141 (135-145) mmol/L Potassium 4.6 (3.3-5.1) mmol/L Chloride 106 (96-108) mmol/L Carbon Dioxide 26 (22-29) mmol/L Anion Gap 14 (12-20) BUN 20 H (9-16) mg/dL Creatinine 1.00 (0.5-1.4) mg/dL Estim Creat Clear Calc 73.1 Estimated GFR > 60 Random Glucose 125 H (60-115) mg/dL Calcium 8.9 (8.4-10.2) mg/dL Magnesium 2.0 (1.6-2.6) mg/dL Total Bilirubin 4.3 H (0.0-1.0) mg/dL Direct Bilirubin 0.4 (0.0-0.5) mg/dL AST 34 D (5-37) U/L ALT 31 (0-40) U/L Alkaline Phosphatase 89 (39-117) U/L Troponin I High Sens (<3.5-35.0) ng/L B-Natriuretic Peptide (<100) pg/mL Total Protein 6.8 (6.5-8.0) g/dL Albumin 3.9 (3.5-5.0) g/dL Ethyl Alcohol < 10 mg/dL COVID-19 ([facility]) (Negative) COVID-19 Clin Com 03/13/22 Range/Units 18:12 WBC 15.4 H (4.8-10.8) X10*3/uL RBC 4.44 L (4.60-5.80) X10*6/uL Hgb 10.5 L D (14.0-18.0) g/dl Hct 35.1 L D (42.0-52.0) % MCV 79.1 L (80.0-98.0) fL MCH 23.6 L (27.0-33.0) pg MCHC 29.9 L (31.0-36.0) g/dl RDW 19.5 H (11.0-16.0) % Plt Count 224 (160-400) X10*3/uL MPV 8.9 L (9.4-12.4) fL Immature Gran % (Auto) 1.2 H (0.0-0.4) % Neut % (Auto) 69.8 (45-73) % Lymph % (Auto) 18.7 L (20-40) % [place] % (Auto) 8.9 (2-11) % Eos % (Auto) 0.9 (0-4) % Baso % (Auto) 0.5 (0-2) % Lymph # (Auto) 2.9 (1.2-4.9) X10*3/uL [place] # (Auto) 1.4 H (0.1-1.2) X10*3/uL Eos # (Auto) 0.1 (0.0-0.4) X10*3/uL Baso # (Auto) 0.1 (0.0-0.2) X10*3/uL Abs Immat Gran (auto) 0.18 H (0.00-0.03) X10*3/uL Absolute Neuts (auto) 10.8 H (2.0-8.3) x10*3/uL Absolute Nucleated RBC 0.040 H (0.0-0.012) X10*3/uL Nucleated RBC % (auto) 0.3 H (0.0-0.2) /100WBC PT (9.9-13.0) SEC INR (0.9-1.1) Sodium (135-145) mmol/L Potassium (3.3-5.1) mmol/L Chloride (96-108) mmol/L Carbon Dioxide (22-29) mmol/L Anion Gap (12-20) BUN (9-16) mg/dL Creatinine (0.5-1.4) mg/dL Estim Creat Clear Calc Estimated GFR Random Glucose (60-115) mg/dL Calcium (8.4-10.2) mg/dL Magnesium (1.6-2.6) mg/dL Total Bilirubin (0.0-1.0) mg/dL Direct Bilirubin (0.0-0.5) mg/dL AST (5-37) U/L ALT (0-40) U/L Alkaline Phosphatase (39-117) U/L Troponin I High Sens (<3.5-35.0) ng/L B-Natriuretic Peptide (<100) pg/mL Total Protein (6.5-8.0) g/dL Albumin (3.5-5.0) g/dL Ethyl Alcohol mg/dL COVID-19 ([facility]) (Negative) COVID-19 Clin Com Discharge Plan Discharge Clinical Impression: Unstable angina Patient Disposition: Admitted As Inpatient Prescriptions: No Action multivitamin Tablet 1 tab PO DAILY 0RF ferrous sulfate 325 mg (65 mg iron) Tablet 325 mg PO DAILY 0RF nitroglycerin 0.4 mg tablet, sublingual 0.4 mg sublingual Q5M PRN (Reason: Chest Pain) 0RF isosorbide mononitrate 30 mg tablet extended release 24 hr 30 mg PO DAILY 0RF fluoxetine 40 mg capsule 40 mg PO DAILY 0RF atorvastatin 40 mg tablet 40 mg PO DAILY 0RF hydrochlorothiazide 12.5 mg tablet 12.5 mg PO DAILY 0RF metoprolol tartrate 50 mg tablet 50 mg PO BID 0RF omeprazole 20 mg capsule,delayed release(DR/EC) 20 mg PO BID 0RF aspirin 81 mg tablet,delayed release (DR/EC) 81 mg PO BEDTIME 0RF
[2022-03-13 17:31] LABS: COVID-19 Test Negative (Negative)
[2022-03-13 17:40] LABS: INTERNATIONAL NORM RATIO 1.1 (0.9-1.1); Prothrombin Time 12.2 SEC (9.9-13.0)
[2022-03-13 17:46] LABS: Ethanol < 10 mg/dL
[2022-03-13 17:47] LABS: Troponin-I High Sensitivity 9.8 ng/L (<3.5-35.0)
[2022-03-13 17:47] LABS: B Type Natriuretic Peptide 357 pg/mL (<100)
[2022-03-13 17:49] LABS: Alanine Aminotransferase 31 U/L (0-40); Albumin Level 3.9 g/dL (3.5-5.0); Alkaline Phosphatase 89 U/L (39-117); Anion Gap 14 (12-20); Aspartate Amino Transferase 34 U/L (5-37); Bilirubin Direct 0.4 mg/dL (0.0-0.5); Bilirubin Total 4.3 mg/dL (0.0-1.0); Blood Urea Nitrogen 20 mg/dL (9-16); Calcium 8.9 mg/dL (8.4-10.2); Carbon Dioxide 26 mmol/L (22-29); Chloride 106 mmol/L (96-108); Creatinine Clr Calc Pharmacy 73.1; Estimated Glomerular Filt Rate > 60; Glucose Random 125 mg/dL (60-115); Potassium 4.6 mmol/L (3.3-5.1); Sodium 141 mmol/L (135-145); Total Protein 6.8 g/dL (6.5-8.0)
[2022-03-13 18:00] VITALS: BP 152/59; PULSE 71; RESP 18
--- NOTE | 2022-03-13 18:03 | PC.NURSE ---
pt having bouts of urgent diarrhea, provider notified, medicated per provider order.
[2022-03-13 18:15] VITALS: BP 165/81; PULSE 77; RESP 20; TEMP 36.7; O2SAT 95
[2022-03-13 18:18] LABS: MANUAL DIFF FLAG NO
[2022-03-13 18:20] LABS: Basophils Absolute Auto 0.1 X10*3/uL (0.0-0.2); Basophils Percent Auto 0.5 % (0-2); Eosinophils Absolute Auto 0.1 X10*3/uL (0.0-0.4); Eosinophils Percent Auto 0.9 % (0-4); Hematocrit 35.1 % (42.0-52.0); Hemoglobin 10.5 g/dl (14.0-18.0); Imm Gran Abs Auto 0.18 X10*3/uL (0.00-0.03); Imm Gran Pct Auto 1.2 % (0.0-0.4); Lymphocytes Absolute Auto 2.9 X10*3/uL (1.2-4.9); Lymphocytes Percent Auto 18.7 % (20-40); Mean Corpuscular HGB Conc 29.9 g/dl (31.0-36.0); Mean Corpuscular Hemoglobin 23.6 pg (27.0-33.0); Mean Corpuscular Volume 79.1 fL (80.0-98.0); Mean Platelet Volume 8.9 fL (9.4-12.4); Monocytes Absolute Auto 1.4 X10*3/uL (0.1-1.2); Monocytes Percent Auto 8.9 % (2-11); NRBC Pct Auto 0.3 /100WBC (0.0-0.2); Neutrophils Absolute Auto 10.8 x10*3/uL (2.0-8.3); Neutrophils Percent Auto 69.8 % (45-73); Platelet Count 224 X10*3/uL (160-400); Red Blood Count 4.44 X10*6/uL (4.60-5.80); Red Cell Distribution Width 19.5 % (11.0-16.0); White Blood Count 15.4 X10*3/uL (4.8-10.8)
--- NOTE | 2022-03-13 19:15 | PHA.MEDREC ---
med rec complete, no issues Pharmacy Consult ? Medication Reconciliation Pharmacy has completed the medication reconciliation.
[2022-03-13 19:31] VITALS: BP 184/89; PULSE 78; RESP 27; O2SAT 96
--- NOTE | 2022-03-13 19:34 | PM.IMHP ---
History of Present Illness Date of Service: 03/13/22 Chief Complaint: Chest pain 76-year-old male with a past history of hypertension, hyperlipidemia, CAD status post CABG x3 CLAYTON on CPAP, prostate cancer presented to the hospital today a chief complaint of chest pain. Patient been having intermittent episodes of chest pain, located in the center of the chest, nonradiating, no associated dizziness or sweating; worsens on exertion. Following with the PCP who noted the patient being a anemia-stool guaiac was negative and being concern for iron deficiency anemia; started on tablets. Patient was sent for the short-stay for blood transfusion-received 2 units of blood transfusion. Status post transfusion patient developed chest pain; subsequently sent to the ER for further evaluation. Patient mentions his chest pain resolved with the time of my entry. Denies any fever chills cough. Denies any GI symptoms. Review of all other systems is negative except mentioned above ER course: Per ER team patient's EKG was nonischemic, troponin 9.8; repeat troponin pending; discussed with Cardiology Dr. Carmona who suggested admission to the [facility] and will be evaluated in the morning for possible catheterization. Did not recommend heparin drip. Admitted for further management. [facility] Medical History Atherosclerotic cardiovascular disease Essential hypertension Obstructive sleep apnea on CPAP Other and unspecified hyperlipidemia Prostate cancer Family History (Updated 03/06/22 @ 11:16 by SP Stringer) Father No problems noted. Mother No problems noted. Surgical History History of coronary artery bypass graft x 3 (~2003) Status post coronary artery bypass graft Social History (Updated 03/06/22 @ 11:15 by SP Stringer) Alcohol intake: former Patient Tobacco Use Status: Former Tobacco user Quit Date: quit 30-40 years ago Use of substances other than those prescribed or required for medical reasons: No Advance Directives: No Advance Directives Information Provided: No Meds Allergies Allergy/AdvReac Type Severity Reaction Status Date / Time No Known Allergies Allergy Verified 03/13/22 16:07 [No Known Allergies*] Active Medications: Current Medications Pharmacy Consult (Consult Rx Perform Med Rec) 1 each MISCELLANE ONCE PRN PRN Reason: Consult order Sodium Chloride (0.9 % Sodium Chloride Flush 3 Ml Syringe) 3 ml IVFLUSH QSHIFT [facility] Home Medications Medication Instructions Recorded Confirmed Last Taken Type aspirin 81 mg tablet,delayed 81 mg PO BEDTIME 03/06/22 03/13/22 03/12/22 History release atorvastatin 40 mg tablet 40 mg PO DAILY tab 03/06/22 03/13/22 03/13/22 History fluoxetine 40 mg capsule 40 mg PO DAILY cap 03/06/22 03/13/22 03/13/22 History hydrochlorothiazide 12.5 mg tablet 12.5 mg PO DAILY tab 03/06/22 03/13/22 03/13/22 History isosorbide mononitrate 30 mg 30 mg PO DAILY tab 03/06/22 03/13/22 03/13/22 History tablet,extended release 24 hr metoprolol tartrate 50 mg tablet 50 mg PO BID tab 03/06/22 03/13/22 03/13/22 History nitroglycerin 0.4 mg sublingual 0.4 mg SUBLINGUAL Q5M PRN tab 03/06/22 03/13/22 Unknown History tablet omeprazole 20 mg capsule,delayed 20 mg PO BID cap 03/06/22 03/13/22 03/13/22 History release ferrous sulfate 325 mg (65 mg 325 mg PO DAILY 03/13/22 03/13/22 03/13/22 History iron) tablet multivitamin 1 tab PO DAILY 03/13/22 03/13/22 03/13/22 History Physical Exam Vital Signs and Narrative: Vital Signs: Last Vital Signs Temp 98.1 F 03/13/22 18:15 Pulse 77 03/13/22 18:15 Resp 20 03/13/22 18:15 BP 165/81 H 03/13/22 18:15 Pulse Ox 95 03/13/22 18:15 BMI result Body Mass Index 30.4 Gen: Appears be in no acute distress HEENT: NCAT, Moist mucosa. Pulmonary: Vesicular breath sounds, fair air entry CVS: Normal S1-S2 Abdomen: BS+, Soft, Nontender Extremities: Warm well perfused Neuro: Alert and awake. Results Labs CBC and Chem 7: 03/13/22 18:12 03/13/22 17:20 Labs: Laboratory Results - last 24 hr 03/13/22 03/13/22 03/13/22 17:10 17:10 17:11 MCV MCH MCHC RDW Plt Count MPV Immature Gran % (Auto) Neut % (Auto) Lymph % (Auto) [place] % (Auto) Eos % (Auto) Baso % (Auto) Lymph # (Auto) [place] # (Auto) Eos # (Auto) Baso # (Auto) Abs Immat Gran (auto) Absolute Neuts (auto) Absolute Nucleated RBC Nucleated RBC % (auto) PT INR Anion Gap Estim Creat Clear Calc Estimated GFR Random Glucose Calcium Magnesium Total Bilirubin Direct Bilirubin AST ALT Alkaline Phosphatase Troponin I High Sens 9.8 B-Natriuretic Peptide 357 H Total Protein Albumin Ethyl Alcohol COVID-19 ([facility]) Negative COVID-19 Clin Com See Note 03/13/22 03/13/22 03/13/22 17:20 17:20 17:20 MCV MCH MCHC RDW Plt Count MPV Immature Gran % (Auto) Neut % (Auto) Lymph % (Auto) [place] % (Auto) Eos % (Auto) Baso % (Auto) Lymph # (Auto) [place] # (Auto) Eos # (Auto) Baso # (Auto) Abs Immat Gran (auto) Absolute Neuts (auto) Absolute Nucleated RBC Nucleated RBC % (auto) PT 12.2 INR 1.1 Anion Gap 14 Estim Creat Clear Calc 73.1 Estimated GFR > 60 Random Glucose 125 H Calcium 8.9 Magnesium 2.0 Total Bilirubin 4.3 H Direct Bilirubin 0.4 AST 34 D ALT 31 Alkaline Phosphatase 89 Troponin I High Sens B-Natriuretic Peptide Total Protein 6.8 Albumin 3.9 Ethyl Alcohol < 10 COVID-19 ([facility]NE) COVID-Michael Bieker Com 03/13/22 18:12 MCV 79.1 L MCH 23.6 L MCHC 29.9 L RDW 19.5 H Plt Count 224 MPV 8.9 L Immature Gran % (Auto) 1.2 H Neut % (Auto) 69.8 Lymph % (Auto) 18.7 L [place] % (Auto) 8.9 Eos % (Auto) 0.9 Baso % (Auto) 0.5 Lymph # (Auto) 2.9 [place] # (Auto) 1.4 H Eos # (Auto) 0.1 Baso # (Auto) 0.1 Abs Immat Gran (auto) 0.18 H Absolute Neuts (auto) 10.8 H Absolute Nucleated RBC 0.040 H Nucleated RBC % (auto) 0.3 H PT INR Anion Gap Estim Creat Clear Calc Estimated GFR Random Glucose Calcium Magnesium Total Bilirubin Direct Bilirubin AST ALT Alkaline Phosphatase Troponin I High Sens B-Natriuretic Peptide Total Protein Albumin Ethyl Alcohol COVID-19 ([facility]NE) COVID-19 Clin Com Imaging Radiologist's Impressions: Impressions Chest X-Ray 03/13/22 16:31 IMPRESSION: -No lobar or segmental airspace consolidation. -Prior median sternotomy. Vascularity normal. -Borderline blunting costophrenic angles consistent with small effusions on recent CT. Assessment and Plan (1) Unstable angina: Status: Acute Plan 76-year-old male with a past history of hypertension, hyperlipidemia, CAD status post CABG x3 CLAYTON on CPAP, prostate cancer presented to the hospital today a chief complaint of chest pain. Chest pain: Concerning for unstable angina Currently resolved EKG nonischemic Initial troponin 9.8-repeat troponin pending Telemetry Cardiology consult aware of the patient. Echocardiogram Sublingual nitroglycerin p.r.n. Continue home aspirin statin metoprolol and Imdur. Anemia: Microcytic anemia. Status post 2 units of blood transfusion on 03/13/2022 in the short-stay surgery. Patient on iron tablets. History of hypertension/hyperlipidemia: Continue home medications. Hold hydrochlorothiazide for now. DVT prophylaxis: Lovenox Code status: Full code Quality Stroke Does the patient have a stroke diagnosis?: No VTE Prior VTE?: No VTE Risk Level:: Medical - moderate - high VTE Device Contraindication: Treatment Not Indicated VTE Drug Contraindication: N/A - Med Ordered
[2022-03-13 20:03] LABS: OBS Int Ctl Valid YES; OBS1 POSITIVE (NEGATIVE)
[2022-03-13 21:03] VITALS: BP 184/89; PULSE 81; RESP 20; TEMP 36.8; O2SAT 98
[2022-03-13] MEDS: Metoprolol Tartrate 50 MG TABLET PO (21:17)
[2022-03-13] MEDS: Aspirin Enteric Coated 81 MG TABLET.DR PO (21:17)
[2022-03-13] MEDS: Enoxaparin Sodium 40 MG/0.4 ML SYRINGE SUBCUT (21:17)
--- NOTE | 2022-03-13 21:17 | PC.NURSE ---
medicated per provider order.
--- NOTE | 2022-03-13 21:36 | PC.NURSE ---
pt requested sandwich and winsome brett.
[2022-03-13 22:49] VITALS: PULSE 83
[2022-03-13] MEDS: Nitroglycerin 0.4 MG TAB.SUBL SUBLINGUAL (22:49)
--- NOTE | 2022-03-13 23:43 | PC.NURSE ---
pt refusing IV and medications, repeat EKG sent to provider. pt requesting to speak with provider, declined lab work with phlebotomy.
--- NOTE | 2022-03-14 00:18 | PC.NURSE ---
pt attempted to leave the ED while waiting for provider while this nurse was medicating another pt. pt brought back by security, provider notified.
--- NOTE | 2022-03-14 00:25 | PC.NURSE ---
Patient found walking out of the ER into the main building. Agitated, refusing to talk, yelling at this RN to leave him alone, stating he is leaving. Security called - escorted patient back to main ER - patient supposed to be admitted. Dr Hoyt made aware of patient agitation and intention of leaving. Patient angry, educated about risk of leaving - can if not treated. Patient refusing treatment, stated he will drive home. Patient signed AMA form, oriented x3. Patient left before Dr Hoyt came down.
--- NOTE | 2022-03-14 04:06 | PM.EVENT ---
Event Note Date of Service: 03/14/22 Event Note: AMA discharge note: Fevers after patient got admitted patient mentioned that he was on a stay in the hospital. Patient was complaining of chest pain and refusing labs and medications. RN explain to the patient to wait for the MD before he leaves. Even after multiple reinforces by the RN, RN cigar tobacco processing supervisor, being explaining the potential complications may even need to diet. Patient adamantly denied to stay and wait for the MD and left the hospital. I tried to call the patient's cellphone-patient did not apple picker.
--- NOTE | 2022-03-14 09:51 | MHC.CM.PN ---
pt left ama prior to being seen by cm
== END 2022-03-14 08:32 | disposition left against medical advice (07) ==
LOC: HO.ED 19:29 → HO.EDOVER 19:39
PROVIDERS: Admitting Provider Hospitalist; Emergency Provider Emergency Medicine; PCP Family Medicine; Visit Provider Hospitalist
DX: R07.9 Chest pain, unspecified (principal); R06.02 Shortness of breath; R60.9 Edema, unspecified; D64.9 Anemia, unspecified; I45.81 Long QT syndrome; K21.9 Gastro-esophageal reflux disease without esophagitis; I25.110 Atherosclerotic heart disease of native coronary artery with unstable angina pectoris; I10 Essential (primary) hypertension; E78.00 Pure hypercholesterolemia, unspecified; G47.33 Obstructive sleep apnea (adult) (pediatric); Z87.891 Personal history of nicotine dependence; Z20.822 Contact with and (suspected) exposure to COVID-19; Z95.1 Presence of aortocoronary bypass graft; Z99.89 Dependence on other enabling machines and devices; Z79.899 Other long term (current) drug therapy; Z53.29 Procedure and treatment not carried out because of patient's decision for other reasons
CPT/HCPCS: 36415; 36430; 71045; 80048; 80076; 82077; 82272; 83735; 83880; 84484; 85025; 85027; 85610; 86850; 86900; 86901; 86923; 87635; 93005; 99219; 99284; 99285; J1650; P9016

== ENCOUNTER → 2022-03-21 13:49 | Outpatient (BNVA) | payer MEDICARE, SELFPAY | PROVIDERS: PCP Family Medicine; Referring Provider Family Medicine; Visit Provider Internal Medicine | DX: I25.10 Atherosclerotic heart disease of native coronary artery without angina pectoris (principal); I10 Essential (primary) hypertension; E78.5 Hyperlipidemia, unspecified; Z95.1 Presence of aortocoronary bypass graft; Z79.82 Long term (current) use of aspirin; Z79.899 Other long term (current) drug therapy | CPT/HCPCS: 99212 ==

== ENCOUNTER → 2022-03-22 12:39 | Outpatient (REF) | payer MEDICARE, SELFPAY ==
--- NOTE | 2022-03-22 12:44 | CA_ITS ---
Transthoracic Echocardiogram Patient (Last, First, Middle): Luciano Gastelum, Gender: Male Date of : 1945 Age: 76 Procedure Date: 03/22/2022 Procedure Type: Transthoracic Echocardiogram Location: OP Height: 175.26 cm Weight: 93.44 kg BSA: 2.09 m2 Heart Rate: 66 bpm BP: 142 / 68 mmHg Slag Expander: SB Referring MD: Miguel Carmona MD Symptoms: I25.10 - Atherosclerotic heart disease of [place] coronary... Study Quality: Adequate ECG Rhythm: Sinus Conclusions: - 1. Normal LV systolic function with possible basal inferior inferoseptal wall motion abnormality in RCA territory with impaired relaxation filling pattern 2. Normal cardiac valvular Doppler 3. Normal RV systolic pressure 4. No gross pericardial effusion Findings Procedure Information Contrast agent, definity, is being given per protocol without apparent complications. Left Ventricle Normal left ventricular size, thickness, and systolic function. The visually estimated ejection fraction is between 60-65%. Spectral Doppler is indicative of an impaired relaxation filling pattern. E/E prime ratio is between 8 and 15 consistent with indeterminate filling pressures. Wall Motion Rest Echo Findings The basal inferior and basal inferoseptal segments are hypokinetic. All other scored wall segments showed normal motion. Right Ventricle Normal right ventricular cavity size and systolic function. Atria The left atrium is likely dilated. Interatrial shunt cannot be excluded. The right atrium was not well visualized. Aortic Valve Normal aortic valve structure and function. There is no aortic valve stenosis. There is no aortic valve regurgitation. Mitral Valve Normal mitral valve structure and function. There is trace mitral valve regurgitation. There is no mitral valve stenosis. Pulmonic Valve The pulmonic valve was not well visualized. Tricuspid Valve Likely normal tricuspid valve structure and function. There is mild tricuspid valve regurgitation. The right ventricular systolic pressure is normal. The right ventricular systolic pressure is 33 mmHg. Normal right atrial pressure. There is no evidence of pulmonary hypertension. Great Vessels All visible segments of the aorta are normal in size. The pulmonary artery was not well visualized. Venous The inferior vena cava is normal in size and collapses greater than 50% with inspiration. Pericardium/Pleural There is no evidence of pericardial effusion. Prior Study Comparison no previous study in the last 5 years for comparison Measurements 2D Linear Measurements IVSd: 0.96 0.6-0.9/0.6-1.0 cm LVIDd: 5.04 3.9-5.3/4.2-5.9 cm LVIDd Index: 2.41 2.4-3.2/2.2-3.1 cm/m2 LVIDs: 3.30 2.0-3.6 cm LVPWd: 0.94 0.7-1.1 cm LA Diam: 4.40 2.7-3.8/3.0-4.0 cm LAIDs Index: 2.11 1.5-2.3 cm/m2 LV Mass: 226.18 67-162/88-224 g LV Mass Index: 108.22 43-95/49-115 g/m2 LVOT Diam: 1.90 3.0+(-)1.3 cm 2D Systolic Function EF 4C: 49.90 >55% EF 2C: 67.60 >55% EF BiP: 59.00 >55% Mitral Valve MV Pk E: 0.87 MV PK A: 0.94 MV Decel Time: 202.00 E/A: 0.90 E'Lateral: 8.70 E'Medial: 5.44 E/E' Med: 15.90 E/E' Lat: 9.90 PHT: 59.00 MVA PHT: 3.73 Decel [place]: 4.28 Aortic Valve AoV Pk Karson: 1.28 AoV Mn Karson: 0.84 AoV VTI: 0.23 AoV Pk Grad: 7.00 Aov Mn Grad: 3.00 JR Cont.VTI: 2.76 LVOT LVOT Pk Karson: 1.20 LVOT Mn Karson: 0.74 LVOT VTI: 0.22 LVOT Pk Grad: 6.00 LVOT Mn Grad: 3.00 LVOT Diam: 1.90 LVOT Area: 2.84 Diastolic Function MV Pk E: 0.87 MV Pk A: 0.94 E/A: 0.90 E'Medial: 5.44 E/E' Med: 15.90 E' Laterial: 8.70 E/E' Lat: 9.90 Right Ventricle TAPSE (mm): 9.20 TVS' Karson: 8.60 Tricuspid Valve TR Pk Karson: 2.75 TR Pk Grad: 30.00 RA Press: 3.00 RVSP: 33.00 Great Vessels Aorta Sinus of Valsalva: 2.97 2.0-3.5 cm Ao Asc: 3.10 2.1-3.4 cm Pulmonary Veins Pulm Vein S/D 1.10 Pulmonary Valve PV Pk Karson: 0.99 Peak PV Grad: 4.00 Updated in Other Vendor System with Status of Final Jayden Patel MD electronically signed on 03/23/2022 10:07:43 AM with status of Final
== END ==
LOC: HO.CARD 12:39
PROVIDERS: Visit Provider Internal Medicine
DX: I25.10 Atherosclerotic heart disease of native coronary artery without angina pectoris (principal); R07.2 Precordial pain
CPT/HCPCS: 93306; Q9957

== ENCOUNTER → 2022-04-02 11:08 | Outpatient (BNVA) | payer MEDICARE, SELFPAY | PROVIDERS: PCP Family Medicine; Visit Provider Surgery | DX: K92.2 Gastrointestinal hemorrhage, unspecified (principal); Z86.010 Personal history of colon polyps | CPT/HCPCS: 99202; 99212 ==

== ENCOUNTER 2022-04-12 10:19 | Outpatient (REF) | payer MEDICARE, SELFPAY ==
[2022-04-12 13:38] LABS: MANUAL DIFF FLAG NO
[2022-04-12 13:52] LABS: Iron 175 mcg/dL (45-160); Percent Iron Saturation 49 % (15-50); Total Iron Binding Capacity 356 mcg/dL (228-428); Unsaturated Iron Binding 181 ug/dL
[2022-04-12 14:01] LABS: Basophils Absolute Auto 0.1 X10*3/uL (0.0-0.2); Basophils Percent Auto 0.7 % (0-2); Eosinophils Absolute Auto 0.1 X10*3/uL (0.0-0.4); Eosinophils Percent Auto 1.8 % (0-4); Hematocrit 38.2 % (42.0-52.0); Hemoglobin 11.6 g/dl (14.0-18.0); Imm Gran Abs Auto 0.03 X10*3/uL (0.00-0.03); Imm Gran Pct Auto 0.4 % (0.0-0.4); Lymphocytes Absolute Auto 2.4 X10*3/uL (1.2-4.9); Lymphocytes Percent Auto 31.3 % (20-40); Mean Corpuscular HGB Conc 30.4 g/dl (31.0-36.0); Mean Corpuscular Hemoglobin 24.4 pg (27.0-33.0); Mean Corpuscular Volume 80.4 fL (80.0-98.0); Mean Platelet Volume 9.2 fL (9.4-12.4); Monocytes Absolute Auto 0.8 X10*3/uL (0.1-1.2); Monocytes Percent Auto 10.9 % (2-11); Neutrophils Absolute Auto 4.2 x10*3/uL (2.0-8.3); Neutrophils Percent Auto 54.9 % (45-73); Platelet Count 248 X10*3/uL (160-400); Red Blood Count 4.75 X10*6/uL (4.60-5.80); Red Cell Distribution Width 19.3 % (11.0-16.0); White Blood Count 7.6 X10*3/uL (4.8-10.8)
== END 2022-04-12 10:20 | disposition home or self-care (01) ==
LOC: HO.10HDL 10:19
PROVIDERS: Visit Provider Family Medicine
DX: D50.9 Iron deficiency anemia, unspecified (principal)
CPT/HCPCS: 36415; 83540; 85025

== ENCOUNTER 2022-04-27 12:51 | Day surgery (SDC) | payer MEDICARE, SELFPAY ==
--- NOTE | 2022-04-26 10:19 | P.CONAN_ITS ---
Documented by User: Nadia Porras NP 04/26/22 10:22 HPI - Anesthesia Eval Consult details Narrative: 77yo M for Upper Endoscopy and Colonoscopy Cardiac cleared at [facility] (referred to GI by cardiology d/t anemia) [facility] Active Problems Active Problems: All Active Problems (Updated 04/02/22 @ 11:44 by Luca Wall MD) History of adenomatous polyp of colon (Acute) Unstable angina (Acute) Obstructive sleep apnea on CPAP (Acute) Other and unspecified hyperlipidemia (Acute) Essential hypertension (Acute) Status post coronary artery bypass graft (Acute) Atherosclerotic cardiovascular disease (Acute) Precordial chest pain (Acute) Cardiovascular disease (Acute) Hypertension (Acute) Past Medical History Medical History Atherosclerotic cardiovascular disease Essential hypertension History of adenomatous polyp of colon Obstructive sleep apnea on CPAP Other and unspecified hyperlipidemia Prostate cancer Family History Family History Father No problems noted. Mother No problems noted. Surgical History Surgical History History of coronary artery bypass graft x 3 (~2003) Hx of colonoscopy Status post coronary artery bypass graft Social History Social History Alcohol intake: former Patient Tobacco Use Status: Former Tobacco user Quit Date: quit 30-40 years ago Are you DNR?: No Advance Directives: No Advance Directives Information Provided: Yes Meds Allergies Allergy/AdvReac Type Severity Reaction Status Date / Time No Known Allergies Allergy Verified 04/02/22 15:18 [No Known Allergies*] Home Medications Medication Instructions Recorded Confirmed Last Taken Type aspirin 81 mg tablet,delayed 81 mg PO BEDTIME 03/06/22 04/02/22 04/26/22 History release atorvastatin 40 mg tablet 40 mg PO DAILY 03/06/22 04/02/22 03/13/22 History fluoxetine 40 mg capsule 40 mg PO DAILY 03/06/22 04/02/22 03/13/22 History hydrochlorothiazide 12.5 mg tablet 12.5 mg PO DAILY 03/06/22 04/02/22 03/13/22 History isosorbide mononitrate 30 mg 30 mg PO DAILY 03/06/22 04/02/22 04/27/22 History tablet,extended release 24 hr metoprolol tartrate 50 mg tablet 50 mg PO BID 03/06/22 04/02/22 04/27/22 History nitroglycerin 0.4 mg sublingual 0.4 mg sublingual Q5M PRN Chest 03/06/22 04/02/22 Unknown History tablet Pain omeprazole 20 mg capsule,delayed 20 mg PO BID 03/06/22 04/02/22 04/27/22 History release ferrous sulfate 325 mg (65 mg 325 mg PO DAILY 03/13/22 04/02/22 03/13/22 History iron) tablet multivitamin 1 tab PO DAILY 03/13/22 04/02/22 03/13/22 History oxybutynin chloride 5 mg tablet mg PO 04/02/22 Unknown History Exam Exam Date and Time: April 26, 2022 1019 Pertinent Lab Results Pertinent Lab Results: Laboratory Tests 03/13/22 04/12/22 17:20 10:25 WBC 7.6 Hgb 11.6 L Hct 38.2 L Plt Count 248 Sodium 141 Potassium 4.6 Chloride 106 Carbon Dioxide 26 BUN 20 H Creatinine 1.00 Narrative Narrative: Per cardiology note: Cardiac catheterization 02/2022 findings reviewed.? Underlying multivessel coronary disease.? FERGUSON graft to LAD and graft to RCA are patent.? Occluded graft to the OM.? However he also has significant disease in the circumflex system.? Overall, no interventions performed. It was felt that his coronary disease was stable with no acute lesions but because of severe anemia he was getting anginal-type symptoms. EKG 02/2022 Vent. Rate : 081 BPM ? ? Atrial Rate : 081 BPM ?? P-R Int : 160 ms? QRS Dur : 088 ms ? ? QT Int : 414 ms ? ? ? P-R-T Axes : 038 022 041 degrees ?? QTc Int : 480 ms ? Normal sinus rhythm Prolonged QT Abnormal ECG When compared with ECG of 13-MAR-2022 15:52, Nonspecific T wave abnormality, improved in Inferior leads ECHO 02/2022 Conclusions: - 1.? Normal LV systolic function with possible basal inferior ? inferoseptal wall motion abnormality in RCA territory with ? ? ? impaired relaxation filling pattern? 2.? Normal cardiac valvular Doppler? 3.? Normal RV systolic pressure? 4. No gross pericardial effusion ? Assessment and Plan Assessment Anesthesia Assessment: Chart Reviewed Documented by User: Fany Vail MD 04/27/22 15:28 PMF Past Medical History Medical History Atherosclerotic cardiovascular disease Essential hypertension History of adenomatous polyp of colon Obstructive sleep apnea on CPAP Other and unspecified hyperlipidemia Prostate cancer Family History Family History Father No problems noted. Mother No problems noted. Surgical History Surgical History History of coronary artery bypass graft x 3 (~2003) Hx of colonoscopy Status post coronary artery bypass graft History of Problems with Anesthesia: No Social History Social History Alcohol intake: former Patient Tobacco Use Status: Former Tobacco user Quit Date: quit 30-40 years ago Are you DNR?: No Advance Directives: No Advance Directives Information Provided: Yes Meds Allergies Allergy/AdvReac Type Severity Reaction Status Date / Time No Known Allergies Allergy Verified 04/02/22 15:18 [No Known Allergies*] Home Medications Medication Instructions Recorded Confirmed Last Taken Type aspirin 81 mg tablet,delayed 81 mg PO BEDTIME 03/06/22 04/02/22 04/26/22 History release atorvastatin 40 mg tablet 40 mg PO DAILY 03/06/22 04/02/22 03/13/22 History fluoxetine 40 mg capsule 40 mg PO DAILY 03/06/22 04/02/22 03/13/22 History hydrochlorothiazide 12.5 mg tablet 12.5 mg PO DAILY 03/06/22 04/02/22 03/13/22 H istory isosorbide mononitrate 30 mg 30 mg PO DAILY 03/06/22 04/02/22 04/27/22 History tablet,extended release 24 hr metoprolol tartrate 50 mg tablet 50 mg PO BID 03/06/22 04/02/22 04/27/22 History nitroglycerin 0.4 mg sublingual 0.4 mg sublingual Q5M PRN Chest 03/06/22 04/02/22 Unknown History tablet Pain omeprazole 20 mg capsule,delayed 20 mg PO BID 03/06/22 04/02/22 04/27/22 History release ferrous sulfate 325 mg (65 mg 325 mg PO DAILY 03/13/22 04/02/22 03/13/22 History iron) tablet multivitamin 1 tab PO DAILY 03/13/22 04/02/22 03/13/22 History oxybutynin chloride 5 mg tablet mg PO 04/02/22 Unknown History Exam Airway Mallampati Class: III TM Dist: >3cm Neck ROM: Full Loose/Missing/Broken Teeth: No Heart: RRR Lungs: CTA Assessment and Plan Assessment Anesthesia Assessment: Anesthesia Plan Discussed Final Anesthetic Review History of Problems with Anesthesia: No NPO: Yes ASA Class: III Final Preanesthetic Review: Meds/Allgs Chart Reviewed, Consent Obtained/Reviewed and Anes Risks/Benef Reviewed Patient Risk: Intermediate Procedure Risk: Intermediate Anesthetic Plan Anesthetic Plan: MAC: Disposition: Standard PACU
[2022-04-27 13:01] VITALS: BP 145/85; PULSE 65; RESP 20; TEMP 36.4; O2SAT 96; BMI 31.3
[2022-04-27] MEDS: Lactated Ringers 1,000 ML 100 ML IVCONT (13:40)
--- NOTE | 2022-04-27 14:40 | MHC.SHP ---
Pre-Procedural Eval Section A Date of Service: 04/27/22 The patient is an INPATIENT: No Changes since office visit: Yes Patient answered all questions; No Cold of Flu in the past 2 weeks, No New Medical Problems and No Changes in Medication The History & Physical has been completed within 30 days and I have reviewed it.: Yes Section B Chief Complaint: polyps,bleeding Allergies: Allergies Allergy/AdvReac Type Severity Reaction Status Date / Time No Known Allergies Allergy Verified 04/02/22 15:18 [No Known Allergies*] Plan I have reviewed the history and physical and performed a pertinent physical examination on my patient. No changes have occurred unless specified.
--- NOTE | 2022-04-27 14:41 | PM.OP ---
Brief Operative Note Date of Service: 04/27/22 Pre-op diagnosis: Iron deficiency anemia, history of colon polyps Post-op diagnosis: other (Gastritis, prominent gastric folds, duodenal nodule, colon polyps, diverticulosis, hemorrhoids) Procedure: FLEXIBLE TRANSORAL UPPER GASTROINTESTINAL ENDOSCOPY WITH BIOPSIES AND COLONOSCOPY TILL CECUM WITH BIOPSIES, SNARE POLYPECTOMY AND SUBMUCOSAL INJECTION UPPER ENDOSCOPY Consent: Indications for the procedure and potential complications of bleeding, perforation, reaction to medications and missed diagnosis were discussed with the patient and informed consent was obtained. Instrument: Olympus GIF H 190 mid size upper endoscope Monitoring: Vital signs and clinical assessment, continuous EKG monitoring, Pulse oximetry, Carbon Dioxide monitoring and blood pressure monitoring were done throughout the procedure. Procedure: The patient was placed in the left lateral decubitis position and pre-procedure medications were administered and a bite block was placed. The endoscope was inserted into the mouth and advanced under direct vision to the third part of duodenum. A careful inspection was made as the upper endoscope was withdrawn including a retroflexed examination of the proximal stomach; Findings and interventions are described below. Findings: Larynx: Normal Esophagus: GE junction at 40 cms. No esophagitis or Philippe's. Stomach: Moderate diffuse gastric erythema with prominent gastric folds in the fundus and body of the stomach - biopsied. Moderate antral erythema. Biopsies were obtained to check for H Pylori. Grade 2 flap valve on retroflexed examination of the cardia. Duodenum: A 2.5 to 3 cms smooth nodule in the apex of the bulb with normal overlying mucosa - biopsied. Normal descending duodenum - biopsies were obtained from 2nd part of the duodenum to check for celiac sprue. Intervention: Biopsies as noted above COLONOSCOPY PROCEDURE NOTE Consent: Indications for the procedure and potential complications of bleeding, perforation, reaction to medications and missed diagnosis were discussed with the patient and informed consent was obtained. Instrument: Olympus CF H 190 L variable stiffness adult colonoscope Monitoring: Vital signs and clinical assessment, intermittent blood pressure monitoring, continuous EKG monitoring, Pulse oximetry and Carbon Dioxide monitoring were done throughout the procedure. Colon withdrawl time was 32 minutes. Procedure: The patient was placed in the left lateral decubitis position and pre-procedure medications were administered. After a digital rectal examination of the ano-rectum, the video colonoscope was inserted into the rectum and advanced through the colon to the cecum. The colonoscope was slowly withdrawn in a retrograde panoramic fashion and the colon mucosa was carefully examined including a retroflexed view of the rectum. Findings and interventions are described below. Procedure Difficulty: : Without difficulty Findings: Terminal Ileum: Not evaluated Cecum: Normal Ascending Colon: A 12-15 mm flat polyp adjacent to ICV raised with 3 cc of Orise solution. Attempts to snare the polyp were unsuccessful. Polyp was removed with multiple bites of cold bx and polypectomy site was treated with cautery using the snare tip and marked by Rosina ink. A 2nd 10 mm sessile polyp in the mid ascending colon removed with a hot snare Transverse Colon: A 10-12 mm sessile polyp removed with a hot snare. Descending Colon: Moderate diverticulosis Sigmoid Colon: A 10-12 mm sessile polyp removed with a hot snare. Moderate diverticulosis Rectum: Normal Ano-rectum: Moderate internal hemorrhoids on antegrade withdrawl - Retroflexed exam could not be performed. Colon preparation: Good after copious irrigation and Fair in the right colon. Impression and Post Procedure Diagnosis: Endoscopy Findings: STOMACH: Moderate diffuse gastric erythema with prominent gastric folds in the fundus and body of the stomach - biopsied. Antral erythema. Biopsies were obtained. DUODENUM: A 2.5 to 3 cms smooth nodule in the apex of the bulb with normal overlying mucosa (?GIST) - biopsied . Normal descending duodenum - biopsies were obtained from 2nd part of the duodenum to check for celiac sprue. Colonoscopy Findings: Four medium sized polyps removed Moderate diverticulosis seen in the left colon Moderate hemorrhoids on antegrade exam. Plan: Await pathology results. If biopsies of duodenal nodule are normal, pt will be referred to [facility] [place]. Patient has an appointment on 08/27/22 in the GI Clinic with Dr Frank. Repeat Colonoscopy interval based on path results - in 2- 3 years if polyps are adenomatous and due to fair prep. Above findings were reviewed with the patient and colon polyps and diverticulosis handouts were given in the discharge are Surgeon: Daniel Smith MD Anesthesia: MAC (Dr Vail & Dr Fagan) Was an Merchandising Representative used for this Procedure?: Yes Merchandising Representative: Spring Mann Estimated blood loss (mL): 0 Pathology: other (A: small bowel biopsy rule out celiac B: duodenal nodule C: gastric antrum rule out H.pylori D: gastric fold Lower E: ascending colon polyps ) Condition: stable Disposition: PACU
[2022-04-27 16:09] VITALS: BP 162/81; PULSE 68; RESP 18; TEMP 36.6; O2SAT 97
[2022-04-27 16:24] VITALS: BP 132/59; PULSE 71; RESP 19; TEMP 36.4; O2SAT 100
[2022-04-27 16:39] VITALS: BP 130/64; PULSE 75; RESP 18; O2SAT 100
[2022-04-27 16:54] VITALS: BP 148/75; PULSE 71; RESP 17; TEMP 36.9; O2SAT 96
--- NOTE | 2022-04-28 12:22 | W.PM.OPN ---
Operative Note Operative Note Date of Service: 04/27/22 Narrative: Pre-op diagnosis: Iron deficiency anemia, history of colon polyps Post-op diagnosis:?other (Gastritis, prominent gastric folds, duodenal nodule, colon polyps, diverticulosis, hemorrhoids) Procedure: FLEXIBLE TRANSORAL UPPER GASTROINTESTINAL ENDOSCOPY WITH BIOPSIES AND COLONOSCOPY TILL CECUM WITH BIOPSIES, SNARE POLYPECTOMY AND SUBMUCOSAL INJECTION UPPER ENDOSCOPY Consent:?Indications for the procedure and potential complications of bleeding, perforation, reaction to medications and missed diagnosis were discussed with the patient and informed consent was obtained. Instrument:?Olympus GIF H 190 mid size upper endoscope Monitoring: Vital signs and clinical assessment, continuous EKG monitoring, Pulse oximetry, Carbon Dioxide monitoring and blood pressure monitoring were done throughout the procedure. Procedure:?The patient was placed in the left lateral decubitis position and pre-procedure medications were administered and a bite block was placed. The endoscope was inserted into the mouth and advanced under direct vision to the third part of duodenum. A careful inspection was made as the upper endoscope was withdrawn including a retroflexed examination of the proximal stomach; Findings and interventions are described below. Findings: Larynx:? Normal Esophagus:?GE junction at 40 cms. No esophagitis or Philippe's. Stomach:?Moderate diffuse gastric erythema with prominent gastric folds in the fundus and body of the stomach - biopsied.? Moderate antral erythema. Biopsies were obtained to check for H Pylori. Grade 2 flap valve on retroflexed examination of the cardia. Duodenum:? A 2.5 to 3 cms smooth nodule in the apex of the bulb with? normal overlying mucosa - biopsied.? Normal descending duodenum - biopsies were obtained from 2nd part of the duodenum to check for celiac sprue. Intervention:?Biopsies as noted above COLONOSCOPY PROCEDURE NOTE Consent:?Indications for the procedure and potential complications of bleeding, perforation, reaction to medications and missed diagnosis were discussed with the patient and informed consent was obtained. Instrument:?Olympus CF H 190 L variable stiffness adult colonoscope Monitoring:?Vital signs and clinical assessment, intermittent blood pressure monitoring, continuous EKG monitoring, Pulse oximetry and Carbon Dioxide monitoring were done throughout the procedure. Colon withdrawl time was 32 minutes. Procedure:?The patient was placed in the left lateral decubitis position and pre-procedure medications were administered. After a digital rectal examination of the ano-rectum, the video colonoscope was inserted into the rectum and advanced through the colon to the cecum. The colonoscope was slowly withdrawn in a retrograde panoramic fashion and the colon mucosa was carefully examined including a retroflexed view of the rectum. Findings and interventions are described below. Procedure Difficulty:?: Without difficulty Findings: Terminal Ileum: Not evaluated Cecum:? Normal Ascending Colon:??A 12-15 mm flat polyp adjacent to ICV raised with 3 cc of Orise solution. Attempts to snare the polyp were unsuccessful.? Polyp was removed with multiple bites of cold bx and polypectomy site was treated with cautery using the snare tip and marked by Rosina ink. A 2nd 10 mm sessile polyp in the mid ascending colon removed with a hot snare Transverse Colon:??A 10-12 mm sessile polyp removed with a hot snare. Descending Colon:? Moderate diverticulosis Sigmoid Colon:??A 10-12 mm sessile polyp removed with a hot snare. Moderate diverticulosis Rectum:??Normal Ano-rectum:??Moderate internal hemorrhoids on antegrade withdrawl - Retroflexed exam could not be performed. Colon preparation:??Good after copious irrigation and Fair in the right colon. Impression and Post Procedure Diagnosis: Endoscopy Findings: STOMACH: Moderate diffuse gastric erythema with prominent gastric folds in the fundus and body of the stomach - biopsied.? Antral erythema. Biopsies were obtained. DUODENUM: A 2.5 to 3 cms smooth nodule in the apex of the bulb with? normal overlying mucosa (?GIST) - biopsied .? Normal descending duodenum - biopsies were obtained from 2nd part of the duodenum to check for celiac sprue. Colonoscopy Findings: Four medium sized polyps removed Moderate diverticulosis seen in the left colon Moderate hemorrhoids on antegrade exam. Plan: Await pathology results.? If biopsies of duodenal nodule are normal, pt will be referred to [facility] [place] [facility] for EUS. Patient has an appointment on 08/27/22 in the GI Clinic with Dr Frank. Repeat Colonoscopy interval based on path results - in 2- 3 years if polyps are adenomatous and due to fair prep. Above findings were reviewed with the patient and colon polyps and diverticulosis handouts were given in the discharge area BIOPSIES SHOWED: A.? Small bowel, biopsy:? Duodenal mucosa within normal limits; preserved villous architecture and no increase in intraepithelial lymphocytes. B.? Duodenum, nodule, biopsy:? Chronic inactive duodenitis with foveolar metaplasia and mild villous blunting; no increased intraepithelial lymphocytes seen. C.? Stomach, antrum, biopsy:? Gastric antral mucosa with mild reactive gastropathy and patchy mild chronic inflammation; negative for Helicobacter pylori, intestinal metaplasia and dysplasia. D.? Stomach, fold, biopsy:? Gastric antral and body mucosa within normal limits; negative for Helicobacter pylori, intestinal metaplasia and dysplasia.? E.? Colon, ascending, polypectomy x2:? Tubular adenoma (s), fragmented; negative for high-grade dysplasia. F.? Colon, transverse, polypectomy:? Tubular adenoma; negative for high-grade dysplasia.? G.? Colon, sigmoid, polypectomy:? Tubular adenoma; negative for high-grade dysplasia. Surgeon: Daniel Smith MD Anesthesia:?MAC (Dr Vail & Dr Fagan) Was an Supervisor Facepiece Line used for this Procedure?:?Yes Supervisor Facepiece Line:?Spring Mann Estimated blood loss (mL):?0 Pathology:?other (A: small bowel biopsy ? rule out celiac? B: duodenal? nodule? C: gastric antrum? rule out H.pylori? D: gastric fold? Lower? E: ascending colon polyps ? ? ) Condition:?stable Disposition:?PACU
== END 2022-04-27 17:44 | disposition home or self-care (01) ==
PROVIDERS: PCP Family Medicine; Visit Provider Internal Medicine Gastroenterology
PROC: 0DJD8ZZ Inspection of Lower Intestinal Tract, Via Natural or Artificial Opening Endoscopic (ICD-10-PCS; CPT 45378; principal; 2022-04-27 14:20)
PROC: (CPT 45385; 2022-04-27 14:20)
DX: Z12.11 Encounter for screening for malignant neoplasm of colon (principal); Z86.010 Personal history of colon polyps; D12.2 Benign neoplasm of ascending colon; D12.3 Benign neoplasm of transverse colon; D12.5 Benign neoplasm of sigmoid colon; K57.30 Diverticulosis of large intestine without perforation or abscess without bleeding; K64.8 Other hemorrhoids; D50.9 Iron deficiency anemia, unspecified; K29.50 Unspecified chronic gastritis without bleeding; K31.7 Polyp of stomach and duodenum; I25.10 Atherosclerotic heart disease of native coronary artery without angina pectoris; Z95.1 Presence of aortocoronary bypass graft; I10 Essential (primary) hypertension; E78.5 Hyperlipidemia, unspecified; C61 Malignant neoplasm of prostate; G47.33 Obstructive sleep apnea (adult) (pediatric); Z79.82 Long term (current) use of aspirin; Z79.899 Other long term (current) drug therapy; Z87.891 Personal history of nicotine dependence
CPT/HCPCS: 45385; 45380; 45381; 43239; 88305; 88342

== ENCOUNTER 2022-07-06 11:55 | Outpatient (REF) | payer MEDICARE, SELFPAY ==
[2022-07-06 13:32] LABS: MANUAL DIFF FLAG NO
[2022-07-06 13:45] LABS: Basophils Absolute Auto 0.1 X10*3/uL (0.0-0.2); Basophils Percent Auto 0.6 % (0-2); Eosinophils Absolute Auto 0.1 X10*3/uL (0.0-0.4); Hematocrit 43.9 % (42.0-52.0); Hemoglobin 14.2 g/dl (14.0-18.0); Imm Gran Abs Auto 0.03 X10*3/uL (0.00-0.03); Imm Gran Pct Auto 0.4 % (0.0-0.4); Lymphocytes Absolute Auto 2.4 X10*3/uL (1.2-4.9); Lymphocytes Percent Auto 31.1 % (20-40); Mean Corpuscular HGB Conc 32.3 g/dl (31.0-36.0); Mean Corpuscular Hemoglobin 25.2 pg (27.0-33.0); Mean Corpuscular Volume 77.8 fL (80.0-98.0); Mean Platelet Volume 8.9 fL (9.4-12.4); Monocytes Absolute Auto 0.9 X10*3/uL (0.1-1.2); Neutrophils Absolute Auto 4.3 x10*3/uL (2.0-8.3); Neutrophils Percent Auto 54.9 % (45-73); Platelet Count 239 X10*3/uL (160-400); Red Blood Count 5.64 X10*6/uL (4.60-5.80); Red Cell Distribution Width 15.3 % (11.0-16.0); White Blood Count 7.8 X10*3/uL (4.8-10.8)
[2022-07-06 14:04] LABS: Alanine Aminotransferase 81 U/L (0-40); Anion Gap 16 (12-20); Aspartate Amino Transferase 72 U/L (5-37); Blood Urea Nitrogen 20 mg/dL (9-16); Carbon Dioxide 24 mmol/L (22-29); Chloride 107 mmol/L (96-108); Estimated Glomerular Filt Rate > 60; Iron 64 mcg/dL (45-160); Percent Iron Saturation 16 % (15-50); Potassium 4.3 mmol/L (3.3-5.1); Sodium 143 mmol/L (135-145); Total Iron Binding Capacity 389 mcg/dL (228-428); Unsaturated Iron Binding 325 ug/dL
== END 2022-07-06 11:56 | disposition home or self-care (01) ==
LOC: HO.10HDL 11:55
PROVIDERS: Absent Provider Internal Medicine Cardiovascular Disease; Visit Provider Family Medicine
DX: D50.9 Iron deficiency anemia, unspecified (principal); I10 Essential (primary) hypertension; E78.00 Pure hypercholesterolemia, unspecified; Z79.899 Other long term (current) drug therapy
CPT/HCPCS: 36415; 80051; 82550; 82565; 83540; 84450; 84460; 84520; 85025

== ENCOUNTER → 2022-07-20 12:30 | Outpatient (REF) | payer MEDICARE, OTHER, SELFPAY ==
--- NOTE | ~2022-07-20 | XR_ITS ---
EXAMINATION: XR LUMBOSACRAL SPINE CLINICAL INFORMATION: Left-sided sciatica. COMPARISON: None TECHNIQUE: Three views of the lumbosacral spine. FINDINGS: There is generalized osteopenia. L5-S1 is transitional with partial sacralization of L5, greater on the left side. Mild degenerative disc disease is seen at L4-5. A rudimentary disc is seen at L5-S1. There is no acute fracture. The soft tissues are unremarkable. Mild to moderate atherosclerosis is noted. XR/XR lumbar spine 2-3V IMPRESSION: Transitional L5-S1 with mild degenerative changes inferiorly as detailed above.
--- NOTE | 2022-07-20 12:40 | CA_ITS ---
Transthoracic Echocardiogram Patient (Last, First, Middle): Luciano Gastelum, Gender: Male Date of : 1945 Age: 77 Procedure Date: 07/20/2022 Procedure Type: Transthoracic Echocardiogram Location: OP Height: 175.26 cm Weight: 99.99 kg BSA: 2.15 m2 Heart Rate: bpm BP: 132 / 68 mmHg Hand Grinder: SB Referring MD: Mo Miranda MD Symptoms: CAD SINUS TACHYCARDIA, NEW EDEMA Study Quality: Adequate w contrast ECG Rhythm: Undetermined Conclusions: - The left ventricular systolic function is mildly decreased. The visually estimated ejection fraction is between 45-50%. - The inferolateral wall, the apical inferior, apical septum, and mid anterolateral segments are akinetic. - There is moderate to severely decreased right ventricular systolic function. - No obvious valvular pathology seen on this study. Findings Procedure Information Contrast agent, definity, is being given per protocol without apparent complications. Left Ventricle Normal left ventricular cavity size. The left ventricular systolic function is mildly decreased. The visually estimated ejection fraction is between 45 50%. There is evidence of regional wall motion abnormalities. Diastolic function is normal for age. There is mild septal asymmetric hypertrophy. Wall Motion Rest Echo Findings The inferolateral wall, the apical inferior, apical septum, and mid anterolateral segments are akinetic. Right Ventricle Normal right ventricular cavity size. There is moderate to severely decreased right ventricular systolic function. Atria Both atria are normal in size. Aortic Valve The aortic valve structure and function is likely normal. There is no aortic valve stenosis. There is no aortic valve regurgitation. Mitral Valve There is mild mitral annular calcification. There is no mitral valve regurgitation. There is no mitral valve stenosis. Pulmonic Valve The pulmonic valve is likely normal. Tricuspid Valve Normal tricuspid valve structure. There is trace tricuspid valve regurgitation. There is no evidence of pulmonary hypertension. Great Vessels The asc aorta is normal in size. Venous The inferior vena cava is normal in size and collapses less than 50% with inspiration. Pericardium/Pleural There is no evidence of pericardial effusion. Prior Study Comparison Changes noted compared to prior study dated: 03/22/2022. LVEF slightly lower. Wall motion abnormalities more pronounced. Recommendations, Care & Conclusions No obvious valvular pathology seen on this study. Measurements 2D Linear Measurements IVSd: 1.15 0.6-0.9/0.6-1.0 cm LVIDd: 5.12 3.9-5.3/4.2-5.9 cm LVIDd Index: 2.38 2.4-3.2/2.2-3.1 cm/m2 LVIDs: 3.81 2.0-3.6 cm LVPWd: 0.81 0.7-1.1 cm LA Diam: 4.40 2.7-3.8/3.0-4.0 cm LAIDs Index: 2.05 1.5-2.3 cm/m2 LV Mass: 229.04 67-162/88-224 g LV Mass Index: 106.53 43-95/49-115 g/m2 LVOT Diam: 2.00 3.0+(-)1.3 cm 2D Systolic Function EF 4C: 56.20 >55% EF 2C: 49.40 >55% EF BiP: 52.90 >55% Mitral Valve MV Pk E: 0.85 MV PK A: 0.97 MV Decel Time: 180.00 E/A: 0.90 E'Lateral: 9.58 E'Medial: 6.23 E/E' Med: 13.60 E/E' Lat: 8.80 PHT: 53.00 MVA PHT: 4.15 Decel Costilla: 4.83 Aortic Valve AoV Pk Karson: 1.15 AoV Mn Karson: 0.80 AoV VTI: 0.18 AoV Pk Grad: 5.00 Aov Mn Grad: 3.00 JR Cont.VTI: 3.07 LVOT LVOT Pk Karson: 1.00 LVOT Mn Karson: 0.68 LVOT VTI: 0.17 LVOT Pk Grad: 4.00 LVOT Mn Grad: 2.00 LVOT Diam: 2.00 LVOT Area: 3.14 Diastolic Function MV Pk E: 0.85 MV Pk A: 0.97 E/A: 0.90 E'Medial: 6.23 E/E' Med: 13.60 E' Laterial: 9.58 E/E' Lat: 8.80 Right Ventricle TAPSE (mm): 8.60 TVS' Karson: 6.80 Tricuspid Valve RA Press: 15.00 Great Vessels Aorta Sinus of Valsalva: 3.00 2.0-3.5 cm Ao Asc: 3.20 2.1-3.4 cm Pulmonary Valve PV Pk Karson: 0.90 Peak PV Grad: 3.00 Updated in Other Vendor System with Status of Final Miguel Carmona MD electronically signed on 07/21/2022 1:48:54 PM with status of Final
== END ==
LOC: HO.CARD 12:30
PROVIDERS: PCP Family Medicine; Visit Provider Family Medicine
DX: I25.10 Atherosclerotic heart disease of native coronary artery without angina pectoris (principal); R00.0 Tachycardia, unspecified; R60.1 Generalized edema; M54.32 Sciatica, left side
CPT/HCPCS: 72100; 93306; Q9957

== ENCOUNTER 2022-07-23 14:13 | Outpatient (REF) | payer MEDICARE, OTHER, SELFPAY ==
--- NOTE | ~2022-07-23 | CT_ITS ---
EXAMINATION: CT ANGIOGRAM OF THE CHEST WITH AND WITHOUT CONTRAST (CT PULMONARY ANGIOGRAM FOR PE) CLINICAL INFORMATION: Reason for Exam SOB RT HEART FAILURE COMPARISON: Previous chest x-ray most recent February 2022 TECHNIQUE: Prior to contrast administration, noncontrast localization images were obtained. Subsequently, multidetector volumetric imaging was performed from the thoracic inlet to below the diaphragms following the administration of 65 mL Omnipaque 350 intravenous contrast. No contrast reaction reported Sagittal, coronal, and MIP oblique sagittal reformatted images were obtained on the CT workstation, uploaded to PACS, and reviewed. This CT examination was performed using dose optimization techniques as appropriate, variously including the following: *Automated exposure control *Adjustment of mA and/or kV according to patient size (this includes techniques or standardized protocols for targeted exams where dose is matched to indication/reason for exam; i.e. extremities or head) *Use of iterative reconstruction technique Total exam dose-length product 160 mGy-cm FINDINGS: QUALITY OF STUDY/CONTRAST BOLUS: Satisfactory. PULMONARY ARTERIES: No central or segmental pulmonary emboli. THORACIC AORTA: No aneurysm or dissection. LUNG: There is an azygos lobe. There is a 2 mm peripheral or subpleural left lower lobe nodule axial image 400 series 11. There is a 1.2 cm right lower lobe nodule at the lateral costophrenic sulcus axial image 474 series 11. Sagittal and coronal images appears somewhat linear and may represent area of atelectasis. There are similar-appearing smaller areas in the posterior lateral and posterior costophrenic sulcus of the left lower lobe. Largest nodular density measures 5 mm axial image 489 series 11. PLEURA: No pleural effusion or pneumothorax. MEDIASTINUM: Post-CABG changes. Normal heart size. No pericardial effusion. No hilar or mediastinal lymphadenopathy. No evidence of septal bowing or right heart strain. CHEST WALL/AXILLA: No axillary or internal mammary lymphadenopathy. OSSEOUS STRUCTURES: No acute or suspicious osseous abnormality. Degenerative changes of the spine. UPPER ABDOMEN: Unremarkable. No reflux of contrast into the hepatic veins to suggest elevated right heart pressures. CT/CT angio chest PE protocol IMPRESSION: No evidence of pulmonary embolism. Post CABG changes. Small millimeter left lower lobe nodule. Larger nodular densities versus atelectasis at both lung bases. According to the UPDATED 2017 Fleischner Society recommendations, the advised follow-up imaging for less than 6 mm solid nodule: Low risk, no chest CT follow-up and high risk, optional chest CT follow-up in one year. VTE: negative
[2022-07-23] MEDS: iohexoL 350 MG/ML 100 ML INFUS..BTL IV (15:10)
== END 2022-07-23 14:14 | disposition home or self-care (01) ==
LOC: HO.CT 14:13
PROVIDERS: PCP Family Medicine; Visit Provider Family Medicine
DX: R06.02 Shortness of breath (principal); R60.0 Localized edema; I50.9 Heart failure, unspecified
CPT/HCPCS: 71275; Q9967

== ENCOUNTER → 2022-08-07 13:36 | Outpatient (REF) | payer MEDICARE, OTHER, SELFPAY ==
--- NOTE | 2022-08-07 13:48 | ECG_ITS ---
Test Reason : tachycardia Blood Pressure : / mmHG Vent. Rate : 095 BPM Atrial Rate : 095 BPM P-R Int : 152 ms QRS Dur : 096 ms QT Int : 386 ms P-R-T Axes : 061 070 072 degrees QTc Int : 485 ms Sinus rhythm with Premature supraventricular complexes and with occasional Premature ventricular complexes RSR' or QR pattern in V1 suggests right ventricular conduction delay Nonspecific ST abnormality Anterior leads Abnormal ECG When compared with ECG of 13-MAR-2022 23:33, Premature ventricular complexes are now Present Premature supraventricular complexes are now Present Nonspecific T wave abnormality now evident in Lateral leads ST now depressed in Anterior leads Referred By: Mo Miranda Electronically Signed By:TAD TATE MD
== END ==
LOC: HO.CARD 13:36
PROVIDERS: PCP Family Medicine; Visit Provider Family Medicine
DX: R00.0 Tachycardia, unspecified (principal)
CPT/HCPCS: 93005

== ENCOUNTER → 2022-08-27 10:36 | Outpatient (BNVA) | payer MEDICARE, OTHER, SELFPAY | PROVIDERS: PCP Family Medicine; Visit Provider Internal Medicine Gastroenterology | DX: D64.9 Anemia, unspecified (principal) | CPT/HCPCS: 36415; 80053; 82607; 82728; 82746; 83540; 85025; 99212 ==

== ENCOUNTER 2022-08-27 11:23 | Outpatient (REF) | payer MEDICARE, SELFPAY ==
[2022-08-27 13:38] LABS: MANUAL DIFF FLAG NO
[2022-08-27 13:42] LABS: Basophils Absolute Auto 0.1 X10*3/uL (0.0-0.2); Basophils Percent Auto 0.6 % (0-2); Eosinophils Percent Auto 0.5 % (0-4); Hematocrit 45.2 % (42.0-52.0); Hemoglobin 14.4 g/dl (14.0-18.0); Imm Gran Abs Auto 0.01 X10*3/uL (0.00-0.03); Imm Gran Pct Auto 0.1 % (0.0-0.4); Lymphocytes Absolute Auto 2.6 X10*3/uL (1.2-4.9); Lymphocytes Percent Auto 31.6 % (20-40); Mean Corpuscular HGB Conc 31.9 g/dl (31.0-36.0); Mean Corpuscular Hemoglobin 26.4 pg (27.0-33.0); Mean Corpuscular Volume 82.8 fL (80.0-98.0); Mean Platelet Volume 9.3 fL (9.4-12.4); Monocytes Absolute Auto 0.8 X10*3/uL (0.1-1.2); Monocytes Percent Auto 9.3 % (2-11); Neutrophils Absolute Auto 4.8 x10*3/uL (2.0-8.3); Neutrophils Percent Auto 57.9 % (45-73); Platelet Count 305 X10*3/uL (160-400); Red Blood Count 5.46 X10*6/uL (4.60-5.80); Red Cell Distribution Width 14.6 % (11.0-16.0); White Blood Count 8.3 X10*3/uL (4.8-10.8)
[2022-08-27 14:06] LABS: Alanine Aminotransferase 46 U/L (0-40); Albumin Level 4.1 g/dL (3.5-5.0); Alkaline Phosphatase 78 U/L (39-117); Anion Gap 18 (12-20); Aspartate Amino Transferase 36 U/L (5-37); Bilirubin Total 0.6 mg/dL (0.0-1.0); Blood Urea Nitrogen 23 mg/dL (9-16); Calcium 9.3 mg/dL (8.4-10.2); Carbon Dioxide 25 mmol/L (22-29); Chloride 105 mmol/L (96-108); Estimated Glomerular Filt Rate 55; Glucose Random 115 mg/dL (60-115); Iron 140 mcg/dL (45-160); Percent Iron Saturation 36 % (15-50); Potassium 4.6 mmol/L (3.3-5.1); Sodium 143 mmol/L (135-145); Total Iron Binding Capacity 389 mcg/dL (228-428); Unsaturated Iron Binding 249 ug/dL
[2022-08-27 14:22] LABS: Ferritin 53 ng/mL (20-250)
[2022-08-27 15:03] LABS: Folate 18.6 ng/mL (> or = 4.0); Vitamin B12 224 pg/mL (200-900)
== END 2022-08-27 11:24 | disposition home or self-care (01) ==
LOC: HO.10HDL 11:23
PROVIDERS: Visit Provider Internal Medicine Gastroenterology
DX: Z13.89 Encounter for screening for other disorder (principal)
CPT/HCPCS: 36415; 80053; 82607; 82728; 82746; 83540; 85025

== ENCOUNTER 2022-08-31 11:09 | Emergency (ER) | payer MEDICARE, OTHER, SELFPAY ==
--- NOTE | 2022-08-31 | ECG_ITS ---
Test Reason : sob Blood Pressure : / mmHG Vent. Rate : 064 BPM Atrial Rate : 064 BPM P-R Int : 140 ms QRS Dur : 092 ms QT Int : 464 ms P-R-T Axes : 018 048 061 degrees QTc Int : 478 ms Normal sinus rhythm Normal ECG When compared with ECG of 07-AUG-2022 13:50, Premature ventricular complexes are no longer Present Premature supraventricular complexes are no longer Present Vent. rate has decreased BY 31 BPM Referred By: Generic ED Physician Electronically Signed By:TAD TATE MD
--- NOTE | ~2022-08-31 | XR_ITS ---
EXAMINATION: XR CHEST CLINICAL INFORMATION: Dyspnea. COMPARISON: 03/13/2022 chest radiograph. TECHNIQUE: 2 views of the chest were obtained. FINDINGS: Very small bilateral pleural effusions are seen. The upper lung meraz are clear. Azygos fissure is noted in place. The heart and mediastinal structures are unremarkable. Multilevel sternotomy wires are intact. XR/XR chest 2V IMPRESSION: Very small bilateral pleural effusions without definitive infiltrate or congestion.
[2022-08-31 11:23] VITALS: BP 137/81; PULSE 65; RESP 20; TEMP 36.2; O2SAT 94; BMI 31.0
[2022-08-31 11:41] LABS: MANUAL DIFF FLAG NO
[2022-08-31 11:43] LABS: Basophils Percent Auto 0.4 % (0-2); Eosinophils Percent Auto 0.4 % (0-4); Hemoglobin 13.1 g/dl (14.0-18.0); Imm Gran Abs Auto 0.01 X10*3/uL (0.00-0.03); Imm Gran Pct Auto 0.1 % (0.0-0.4); Lymphocytes Absolute Auto 1.8 X10*3/uL (1.2-4.9); Lymphocytes Percent Auto 25.2 % (20-40); Mean Corpuscular HGB Conc 32.8 g/dl (31.0-36.0); Mean Corpuscular Hemoglobin 27.5 pg (27.0-33.0); Monocytes Absolute Auto 0.7 X10*3/uL (0.1-1.2); Monocytes Percent Auto 9.4 % (2-11); Neutrophils Absolute Auto 4.7 x10*3/uL (2.0-8.3); Neutrophils Percent Auto 64.5 % (45-73); Platelet Count 225 X10*3/uL (160-400); Red Blood Count 4.76 X10*6/uL (4.60-5.80); Red Cell Distribution Width 14.3 % (11.0-16.0); White Blood Count 7.2 X10*3/uL (4.8-10.8)
[2022-08-31 11:57] LABS: Anion Gap 17 (12-20); Blood Urea Nitrogen 26 mg/dL (9-16); Calcium 8.3 mg/dL (8.4-10.2); Carbon Dioxide 19 mmol/L (22-29); Chloride 111 mmol/L (96-108); Creatinine Clr Calc Pharmacy 64.3; Estimated Glomerular Filt Rate > 60; Glucose Random 128 mg/dL (60-115); Potassium 4.1 mmol/L (3.3-5.1); Sodium 143 mmol/L (135-145)
[2022-08-31 12:20] LABS: B Type Natriuretic Peptide 657 pg/mL (<100); Troponin-I High Sensitivity 18.2 ng/L (<3.5-35.0)
--- NOTE | 2022-08-31 13:11 | ED_ITS ---
HPI - General Adult General Chief complaint: Dyspnea Stated complaint: feeling winded Time Seen by Provider: 08/31/22 13:11 Source: patient Mode of arrival: ambulatory Limitations: no limitations History of Present Illness HPI narrative: Patient is a 77 year old assigned male at with a history of COPD, CAD, HTN, and a duodenal nodule presenting to the emergency department today with shortness of breath. Patient states that he has had an increase in shortness of breath over the last 4 days. Patient denies any dizziness, lightheadedness, abdominal pain, nausea, vomiting, fever, chills, blurry vision, double vision, loss of vision, chest pain, back pain, night sweats, pain with urination, i ncreased urinary frequency, increased urinary urgency, blood in his urine or stool, syncope or a near syncopal episode, recent trauma or falls, bowel incontinence, bladder incontinence, bowel retention, bladder retention, or any other complaints at this time. Related Data Home Medications Medication Instructions Recorded Confirmed aspirin 81 mg tablet,delayed 81 mg PO BEDTIME 03/06/22 04/02/22 release atorvastatin 40 mg tablet 40 mg PO DAILY 03/06/22 04/02/22 fluoxetine 40 mg capsule 40 mg PO DAILY 03/06/22 04/02/22 hydrochlorothiazide 12.5 mg tablet 12.5 mg PO DAILY 03/06/22 04/02/22 isosorbide mononitrate 30 mg 30 mg PO DAILY 03/06/22 04/02/22 tablet,extended release 24 hr metoprolol tartrate 50 mg tablet 50 mg PO BID 03/06/22 04/02/22 nitroglycerin 0.4 mg sublingual 0.4 mg sublingual Q5M PRN Chest 03/06/22 04/02/22 tablet Pain omeprazole 20 mg capsule,delayed 20 mg PO BID 03/06/22 04/02/22 release ferrous sulfate 325 mg (65 mg 325 mg PO DAILY 03/13/22 04/02/22 iron) tablet multivitamin 1 tab PO DAILY 03/13/22 04/02/22 oxybutynin chloride 5 mg tablet mg PO 04/02/22 furosemide 40 mg tablet mg PO 08/27/22 potassium chloride 10 mEq meq PO 08/27/22 tablet,extended release Previous Rx's Medication Instructions Recorded ceramides 1,3,6-II (CeraVe Daily 1 appl topical TID #355 mL 10/31/22 Moisturizing lotion) Allergies Allergy/AdvReac Type Severity Reaction Status Date / Time No Known Allergies Allergy Verified 08/27/22 10:41 [No Known Allergies*] Review of Systems Constitutional: Constitutional: Reports no additional constitutional complaints, Denies chills, Denies fever(s) and Denies night sweats Eyes: Eyes: Reports no additional eye complaints, Denies blurry vision, Denies change in vision, Denies diplopia, Denies eye discharge, Denies loss of vision and Denies eye pain ENT: Denies dizziness Cardiovascular: Cardiovascular: Reports no additional cardiovascular complaints, Denies chest pain, Denies lightheadedness, Denies Loss of Co nsciousness and Reports dyspnea Respiratory: Respiratory: Reports no additional respiratory complaints and Reports dyspnea Gastrointestinal: Gastrointestinal: Reports no additional gastrointestinal complaints, Denies abdominal pain, Denies melena, Denies hematochezia, Denies change in bowel habits and Denies change in stool character Genitourinary: Genitourinary: Reports no additional male genitourinary complaints, Denies hematuria, Denies oliguria, Denies difficulty urinating, Denies dysuria, Denies urinary frequency, Denies urinary hesitancy, Denies urinary incontinence and Denies urinary urgency Musculoskeletal: Musculoskeletal: Reports no additional musculoskeletal compla ints, Denies numbness and Denies tingling Neurologic: Denies dizziness, Denies loss of vision, Denies numbness and Denies tingling Psychiatric: Psychiatric: Reports no additional psychiatric complaints Endocrine: Endocrine: Reports no additional endocrine complaints Hematologic/Lymphatic: Hematologic/Lymphatic: Reports no additional hematologic/lymphatic complaints Allergic/Immunologic: Allergic/Immunologic: Reports no additional allergic/immunologic complaints [facility] Past Medical History Attestation statement: The following information was validated with the patient. Source: old records reviewed Medical History Atherosclerotic cardiovascular disease Essential hypertension History of adenomatous polyp of colon Obstructive sleep apnea on CPAP Other and unspecified hyperlipidemia Prostate cancer Surgical History History of coronary artery bypass graft x 3 (~2003) Hx of colonoscopy Status post coronary artery bypass graft Family History Family History Father No problems noted. Mother No problems noted. Social History Social History Alcohol intake: former Patient Tobacco Use Status: Former Tobacco user Quit Date: quit 30-40 years ago Advance Directives: No Advance Directives Information Provided: No Physical Exam ED Vital Signs: Vital Signs - 24 hr 08/31/22 11:23 08/31/22 13:12 Temperature 97.2 F 97.5 F Pulse Rate 65 59 Respiratory Rate 20 12 Blood Pressure 137/81 134/70 Pulse Oximetry 94 95 Oxygen Delivery Method Room Air Room Air BMI result Body Mass Index 31.0 Const General: cooperative, no acute distress, alert and awake Nutritional Appearance: well nourished Orientation/consciousness: patient oriented x3 Limitations: no limitations HENMT Head: Yes normal to inspection and Yes atraumatic Ears: hearing grossly normal bilaterally and external ears normal General nose exam: Normal external nose present, no nasal discharge noted and no epistaxis Face and sinus: Yes normal facial exam, No abrasion and No laceration Mouth: Normal oral and palatal mucosa present, no drooling and no muffled voice Eyes General: appearance normal, both eyes and all related structures Periorbital: periorbital findings normal Eyelids: Yes eyelids normal Conjunctivae: conjunctivae normal Pupils: Equal, round and reactive pupils present EOM: EOMs intact bilaterally Neck Neck: Yes normal visual inspection, Yes full ROM and Yes no lymphadenopathy Chest Chest palpation & inspection: normal inspection of the chest Resp Effort & Inspection: normal respiratory effort and able to speak in complete sentences Auscultation: crackles diffuse Cardio Rate: regular rate Rhythm: regular rhythm GI Inspection: Yes normal to inspection Neuro General: patient oriented x3 and moves all extremities Cranial nerves: Yes Equal, round and reactive pupils present Cognition (Neuro): normal cognition Motor exam (neuro): 5/5 motor strength present throughout Sensory Exam: Normal double simultaneous stimulation for sensation Coordination: [id number] test normal Extrem General: Yes full ROM, Yes capillary refill normal and Yes pedal edema Psych Appearance: grossly normal Mental Status: mental status grossly normal Affect: normal affect Attitude: cooperative Thought process: Normal thought process present Thought content: Normal thought content present Insight: Good insight present (Psych) Medical Decision Making MDM Narrative Medical decision making narrative: Patient is a 77 year old assigned male at with a history of HTN, COPD, and CAD presenting to the emergency department today with shortness of breath. Patient's physical exam showed diffuse crackles and bilateral pedal edema. Patient's blood work showed an elevated BNP of 657. Patient's EKG was unremarkable. Patient's chest x-ray showed very small bilateral pleural effusions without definitive infiltrate or congestion. I explained my physical exam findings as well as all test results to the patient. I answered all questions asked by the patient. I explained to the patient that he needs to be admitted to the hospital for diuresis. The patient adamantly refused admission. Patient stated that he wanted to go visit his girlfriend in short term rehab and he absolutely did not want to stay in the hospital. Patient stated he understood the risk of permanent disability, , heart attack, etc. Patient stated that he wanted to leave anyway. Patient signed out against medical advice. Medical Records Medical records reviewed: Yes I reviewed the patient's medical records. Lab Data Lab results reviewed: Yes I reviewed the patient's lab results. Result diagrams: 08/31/22 11:36 08/31/22 11:36 Labs: Lab Results 08/31/22 08/31/22 08/31/22 Range/Units 11:36 11:36 11:36 WBC 7.2 (4.8-10.8) X10*3/uL RBC 4.76 (4.60-5.80) X10*6/uL Hgb 13.1 L (14.0-18.0) g/dl Hct 40.0 L (42.0-52.0) % MCV 84.0 (80.0-98.0) fL MCH 27.5 (27.0-33.0) pg MCHC 32.8 (31.0-36.0) g/dl RDW 14.3 (11.0-16.0) % Plt Count 225 D (160-400) X10*3/uL MPV 9.0 L (9.4-12.4) fL Immature Gran % (Auto) 0.1 (0.0-0.4) % Neut % (Auto) 64.5 (45-73) % Lymph % (Auto) 25.2 (20-40) % [place] % (Auto) 9.4 (2-11) % Eos % (Auto) 0.4 (0-4) % Baso % (Auto) 0.4 (0-2) % Lymph # (Auto) 1.8 (1.2-4.9) X10*3/uL [place] # (Auto) 0.7 (0.1-1.2) X10*3/uL Eos # (Auto) 0.0 (0.0-0.4) X10*3/uL Baso # (Auto) 0.0 (0.0-0.2) X10*3/uL Abs Immat Gran (auto) 0.01 (0.00-0.03) X10*3/uL Absolute Neuts (auto) 4.7 (2.0-8.3) x10*3/uL Absolute Nucleated RBC 0.000 (0.0-0.012) X10*3/uL Nucleated RBC % (auto) 0.0 (0.0-0.2) /100WBC Sodium 143 (135-145) mmol/L Potassium 4.1 (3.3-5.1) mmol/L Chloride 111 H (96-108) mmol/L Carbon Dioxide 19 L (22-29) mmol/L Anion Gap 17 (12-20) BUN 26 H (9-16) mg/dL Creatinine 1.13 (0.5-1.4) mg/dL Estim Creat Clear Calc 64.3 Estimated GFR > 60 Random Glucose 128 H (60-115) mg/dL Calcium 8.3 L D (8.4-10.2) mg/dL Magnesium 2.0 (1.6-2.6) mg/dL Total Bilirubin 0.5 (0.0-1.0) mg/dL Direct Bilirubin 0.2 (0.0-0.5) mg/dL AST 40 H (5-37) U/L ALT 49 H (0-40) U/L Alkaline Phosphatase 71 (39-117) U/L Troponin I High Sens 18.2 D (<3.5-35.0) ng/L B-Natriuretic Peptide 657 H (<100) pg/mL Total Protein 6.2 L (6.5-8.0) g/dL Albumin 3.7 (3.5-5.0) g/dL Imaging Data Chest x-ray: Attestation: I personally reviewed and interpreted this imaging study as follows: My impression: Small bilateral pleural effusions. Radiologist's impression: EXAMINATION: XR CHEST CLINICAL INFORMATION: Dyspnea. COMPARISON: 03/13/2022 chest radiograph. TECHNIQUE: 2 views of the chest were obtained. FINDINGS: Very small bilateral pleural effusions are seen. The upper lung meraz are clear. Azygos fissure is noted in place. The heart and mediastinal structures are unremarkable. Multilevel sternotomy wires are intact. XR/XR chest 2V IMPRESSION: Very small bilateral pleural effusions without definitive infiltrate or congestion. Dictated By: Grey Weston MD Signed By: Electronically signed by Grey Weston MD 08/31/22 1204 ECG Data Attestation: I personally reviewed and interpreted this ECG as follows: Prior ECG tracings: available for review Interpretation: Vent. Rate: 064 BPM ? ? Atrial Rate: 064 BPM P-R Int: 140 ms? QRS Dur: 092 ms QT Int: 464 ms ? ? ? P-R-T Axes: 018 048 061 degrees QTc Int: 478 ms ? Normal sinus rhythm Normal ECG When compared with ECG of 07-AUG-2022 13:50, Premature ventricular complexes are no longer Present Premature supraventricular complexes are no longer Present Vent. rate has decreased BY? 31 BPM ? Electronically Signed By:TAD TATE MD Dictated By: Luca Tate MD Signed By: Electronically signed by Luca Tate MD 08/31/22 1704 Discharge Plan Discharge Clinical Impression: CHF (congestive heart failure) Patient Disposition: Left Against Medical Advice Instructions: Pulmonary Edema (ED) Prescriptions: No Action multivitamin Tablet 1 tab PO DAILY ferrous sulfate 325 mg (65 mg iron) Tablet 325 mg PO DAILY oxybutynin chloride 5 mg tablet PO nitroglycerin 0.4 mg tablet, sublingual 0.4 mg sublingual Q5M PRN (Reason: Chest Pain) isosorbide mononitrate 30 mg tablet extended release 24 hr 30 mg PO DAILY fluoxetine 40 mg capsule 40 mg PO DAILY atorvastatin 40 mg tablet 40 mg PO DAILY hydrochlorothiazide 12.5 mg tablet 12.5 mg PO DAILY metoprolol tartrate 50 mg tablet 50 mg PO BID omeprazole 20 mg capsule,delayed release(DR/EC) 20 mg PO BID aspirin 81 mg tablet,delayed release (DR/EC) 81 mg PO BEDTIME furosemide 40 mg tablet PO potassium chloride 10 mEq tablet extended release PO CeraVe Daily Moisturizing Lotion 1 appl topical TID Qty: 355 3RF Stand Alone Forms: Against Medical Advice Interventions: ED Discharge Assessment Last Done: 08/31/22 13:34 Discharge Date/Time: 08/31/22 13:41 Print Language: Azerbaijani
[2022-08-31 13:12] VITALS: BP 134/70; PULSE 59; RESP 12; TEMP 36.4; O2SAT 95
--- NOTE | 2022-08-31 13:37 | PC.NURSE ---
Pt fidel'd from ed. Risks explained. Pt unwilling to stay for treatment.
[2022-08-31 13:52] LABS: Alanine Aminotransferase 49 U/L (0-40); Albumin Level 3.7 g/dL (3.5-5.0); Alkaline Phosphatase 71 U/L (39-117); Aspartate Amino Transferase 40 U/L (5-37); Bilirubin Direct 0.2 mg/dL (0.0-0.5); Bilirubin Total 0.5 mg/dL (0.0-1.0); Total Protein 6.2 g/dL (6.5-8.0)
== END 2022-08-31 13:41 | disposition left against medical advice (07) ==
PROVIDERS: Physician Assistant Medical; Emergency Provider Emergency Medicine; PCP Family Medicine
DX: I50.9 Heart failure, unspecified (principal); R06.02 Shortness of breath; I25.10 Atherosclerotic heart disease of native coronary artery without angina pectoris; I10 Essential (primary) hypertension; Z79.899 Other long term (current) drug therapy; Z87.891 Personal history of nicotine dependence
CPT/HCPCS: 36415; 71046; 80048; 80076; 83735; 83880; 84484; 85025; 93005; 99283; 99284

== ENCOUNTER → 2022-10-18 10:41 | Outpatient (BNVA) | payer MEDICARE, OTHER, SELFPAY | PROVIDERS: PCP Family Medicine; Visit Provider Internal Medicine | DX: Z01.810 Encounter for preprocedural cardiovascular examination (principal); I25.10 Atherosclerotic heart disease of native coronary artery without angina pectoris; I10 Essential (primary) hypertension; E78.5 Hyperlipidemia, unspecified; Z95.1 Presence of aortocoronary bypass graft | CPT/HCPCS: 99212 ==

== ENCOUNTER 2023-02-14 10:12 | Outpatient (REF) | payer MEDICARE, MEDICAID, SELFPAY ==
[2023-02-14 10:42] LABS: MANUAL DIFF FLAG NO
[2023-02-14 10:51] LABS: Basophils Absolute Auto 0.1 X10*3/uL (0.0-0.2); Basophils Percent Auto 0.6 % (0-2); Eosinophils Absolute Auto 0.2 X10*3/uL (0.0-0.4); Eosinophils Percent Auto 1.8 % (0-4); Hematocrit 45.3 % (42.0-52.0); Hemoglobin 14.8 g/dl (14.0-18.0); Imm Gran Abs Auto 0.04 X10*3/uL (0.00-0.03); Imm Gran Pct Auto 0.5 % (0.0-0.4); Lymphocytes Absolute Auto 2.9 X10*3/uL (1.2-4.9); Lymphocytes Percent Auto 33.3 % (20-40); Mean Corpuscular HGB Conc 32.7 g/dl (31.0-36.0); Mean Corpuscular Hemoglobin 28.1 pg (27.0-33.0); Mean Corpuscular Volume 86.1 fL (80.0-98.0); Mean Platelet Volume 8.8 fL (9.4-12.4); Monocytes Absolute Auto 0.8 X10*3/uL (0.1-1.2); Monocytes Percent Auto 9.5 % (2-11); Neutrophils Absolute Auto 4.7 x10*3/uL (2.0-8.3); Neutrophils Percent Auto 54.3 % (45-73); Platelet Count 212 X10*3/uL (160-400); Red Blood Count 5.26 X10*6/uL (4.60-5.80); Red Cell Distribution Width 13.5 % (11.0-16.0); White Blood Count 8.6 X10*3/uL (4.8-10.8)
[2023-02-14 11:40] LABS: Alanine Aminotransferase 23 U/L (0-40); Alkaline Phosphatase 107 U/L (39-117); Anion Gap 15 (12-20); Aspartate Amino Transferase 25 U/L (5-37); Bilirubin Total 0.6 mg/dL (0.0-1.0); Blood Urea Nitrogen 24 mg/dL (9-16); Calcium 8.6 mg/dL (8.4-10.2); Carbon Dioxide 27 mmol/L (22-29); Chloride 108 mmol/L (96-108); Estimated Glomerular Filt Rate 56; Glucose Fasting 136 mg/dL (60-99); Potassium 4.9 mmol/L (3.3-5.1); Sodium 145 mmol/L (135-145); Total Protein 6.6 g/dL (6.5-8.0)
== END 2023-02-14 10:13 | disposition home or self-care (01) ==
LOC: HO.10HDL 10:12
PROVIDERS: Visit Provider Family Medicine
DX: R53.83 Other fatigue (principal)
CPT/HCPCS: 36415; 80053; 84439; 85025

== ENCOUNTER 2023-07-02 09:13 | Outpatient (REF) | payer MEDICARE, MEDICAID, SELFPAY ==
[2023-07-02 10:58] LABS: MANUAL DIFF FLAG NO
[2023-07-02 11:00] LABS: Basophils Percent Auto 0.5 % (0-2); Eosinophils Absolute Auto 0.1 X10*3/uL (0.0-0.4); Eosinophils Percent Auto 1.1 % (0-4); Hematocrit 44.5 % (42.0-52.0); Imm Gran Abs Auto 0.04 X10*3/uL (0.00-0.03); Imm Gran Pct Auto 0.5 % (0.0-0.4); Lymphocytes Absolute Auto 2.6 X10*3/uL (1.2-4.9); Lymphocytes Percent Auto 29.3 % (20-40); Mean Corpuscular HGB Conc 33.7 g/dl (31.0-36.0); Mean Corpuscular Hemoglobin 27.8 pg (27.0-33.0); Mean Corpuscular Volume 82.4 fL (80.0-98.0); Mean Platelet Volume 8.9 fL (9.4-12.4); Monocytes Absolute Auto 0.8 X10*3/uL (0.1-1.2); Monocytes Percent Auto 8.9 % (2-11); Neutrophils Absolute Auto 5.3 x10*3/uL (2.0-8.3); Neutrophils Percent Auto 59.7 % (45-73); Platelet Count 230 X10*3/uL (160-400); Red Cell Distribution Width 13.2 % (11.0-16.0); White Blood Count 8.9 X10*3/uL (4.8-10.8)
[2023-07-02 11:34] LABS: Alanine Aminotransferase 30 U/L (0-40); Albumin Level 4.1 g/dL (3.5-5.0); Alkaline Phosphatase 78 U/L (39-117); Anion Gap 13 (12-20); Aspartate Amino Transferase 27 U/L (5-37); Bilirubin Total 0.6 mg/dL (0.0-1.0); Blood Urea Nitrogen 23 mg/dL (9-16); Calcium 9.1 mg/dL (8.4-10.2); Carbon Dioxide 25 mmol/L (22-29); Chloride 107 mmol/L (96-108); Estimated Glomerular Filt Rate > 60; Glucose Fasting 128 mg/dL (60-99); Potassium 4.3 mmol/L (3.3-5.1); Sodium 141 mmol/L (135-145); Total Protein 7.2 g/dL (6.5-8.0)
[2023-07-02 11:41] LABS: Free T4 (Free Thyroxine) 0.91 ng/dL (0.71-1.85); Thyroid Stimulating Hormone 2.38 uIU/mL (0.32-4.0)
[2023-07-02 12:41] LABS: Estimated Average Glucose 123 mg/dL; Hemoglobin A1c % 5.9 % (<6.0)
== END 2023-07-02 09:14 | disposition home or self-care (01) ==
LOC: HO.10HDL 09:13
PROVIDERS: Visit Provider Family Medicine
DX: R53.83 Other fatigue (principal); I25.10 Atherosclerotic heart disease of native coronary artery without angina pectoris; D50.9 Iron deficiency anemia, unspecified; E78.00 Pure hypercholesterolemia, unspecified; R73.9 Hyperglycemia, unspecified
CPT/HCPCS: 36415; 80053; 83036; 84439; 84443; 85025

== ENCOUNTER 2023-12-13 09:03 | Outpatient (REF) | payer MEDICARE, MEDICAID, SELFPAY ==
[2023-12-13 11:15] LABS: MANUAL DIFF FLAG NO
[2023-12-13 11:39] LABS: Estimated Average Glucose 128 mg/dL; Hemoglobin A1c % 6.1 % (<6.0)
[2023-12-13 11:47] LABS: Alanine Aminotransferase 27 U/L (0-40); Anion Gap 15 (12-20); Aspartate Amino Transferase 23 U/L (5-37); Blood Urea Nitrogen 23 mg/dL (9-16); Carbon Dioxide 25 mmol/L (22-29); Chloride 106 mmol/L (96-108); Estimated Glomerular Filt Rate > 60; Glucose Fasting 141 mg/dL (60-99); Iron 75 mcg/dL (45-160); Percent Iron Saturation 28 % (15-50); Potassium 4.4 mmol/L (3.3-5.1); Sodium 142 mmol/L (135-145); Total Iron Binding Capacity 266 mcg/dL (228-428); Unsaturated Iron Binding 191 ug/dL
[2023-12-13 12:13] LABS: Basophils Percent Auto 0.5 % (0-2); Eosinophils Absolute Auto 0.1 X10*3/uL (0.0-0.4); Hematocrit 43.4 % (42.0-52.0); Hemoglobin 14.4 g/dl (14.0-18.0); Imm Gran Abs Auto 0.02 X10*3/uL (0.00-0.03); Imm Gran Pct Auto 0.2 % (0.0-0.4); Lymphocytes Absolute Auto 2.6 X10*3/uL (1.2-4.9); Lymphocytes Percent Auto 29.9 % (20-40); Mean Corpuscular HGB Conc 33.2 g/dl (31.0-36.0); Mean Corpuscular Hemoglobin 27.1 pg (27.0-33.0); Mean Corpuscular Volume 81.7 fL (80.0-98.0); Mean Platelet Volume 8.8 fL (9.4-12.4); Monocytes Absolute Auto 0.8 X10*3/uL (0.1-1.2); Neutrophils Absolute Auto 5.2 x10*3/uL (2.0-8.3); Neutrophils Percent Auto 59.4 % (45-73); Platelet Count 245 X10*3/uL (160-400); Red Blood Count 5.31 X10*6/uL (4.60-5.80); Red Cell Distribution Width 14.1 % (11.0-16.0); White Blood Count 8.7 X10*3/uL (4.8-10.8)
== END 2023-12-13 09:04 | disposition home or self-care (01) ==
LOC: HO.10HDL 09:03
PROVIDERS: Visit Provider Family Medicine
DX: I10 Essential (primary) hypertension (principal); E11.9 Type 2 diabetes mellitus without complications; D50.9 Iron deficiency anemia, unspecified; E78.00 Pure hypercholesterolemia, unspecified; Z79.899 Other long term (current) drug therapy
CPT/HCPCS: 36415; 80051; 82550; 82565; 82947; 83036; 83540; 84450; 84460; 84520; 85025

== ENCOUNTER 2024-02-05 08:45 | Outpatient (REF) | payer MEDICARE, MEDICAID, SELFPAY ==
[2024-02-05 11:36] LABS: Estimated Average Glucose 131 mg/dL; Hemoglobin A1c % 6.2 % (<6.0)
[2024-02-05 11:58] LABS: Glucose Fasting 121 mg/dL (60-99)
[2024-02-05 12:12] LABS: Creatinine Urine 185.19 mg/dL
[2024-02-05 12:28] LABS: Microalbum/Creatinine Ratio Ur 308.8 ug/mg cr (<30)
== END 2024-02-05 08:46 | disposition home or self-care (01) ==
LOC: HO.10HDL 08:45
PROVIDERS: Visit Provider Family Medicine
DX: E11.9 Type 2 diabetes mellitus without complications (principal)
CPT/HCPCS: 36415; 82043; 82570; 82947; 83036

== ENCOUNTER 2024-05-15 12:20 | Outpatient (REF) | payer MEDICARE, MEDICAID, SELFPAY ==
[2024-05-15 12:39] LABS: MANUAL DIFF FLAG NO
[2024-05-15 13:21] LABS: Basophils Absolute Auto 0.1 X10*3/uL (0.0-0.2); Basophils Percent Auto 0.5 % (0-2); Eosinophils Absolute Auto 0.4 X10*3/uL (0.0-0.4); Eosinophils Percent Auto 3.4 % (0-4); Hematocrit 39.9 % (42.0-52.0); Imm Gran Abs Auto 0.07 X10*3/uL (0.00-0.03); Imm Gran Pct Auto 0.6 % (0.0-0.4); Lymphocytes Absolute Auto 1.8 X10*3/uL (1.2-4.9); Lymphocytes Percent Auto 17.1 % (20-40); Mean Corpuscular HGB Conc 32.6 g/dl (31.0-36.0); Mean Corpuscular Hemoglobin 27.3 pg (27.0-33.0); Mean Corpuscular Volume 83.8 fL (80.0-98.0); Mean Platelet Volume 8.6 fL (9.4-12.4); Monocytes Absolute Auto 0.9 X10*3/uL (0.1-1.2); Monocytes Percent Auto 8.1 % (2-11); Neutrophils Absolute Auto 7.6 x10*3/uL (2.0-8.3); Neutrophils Percent Auto 70.3 % (45-73); Platelet Count 368 X10*3/uL (160-400); Red Blood Count 4.76 X10*6/uL (4.60-5.80); Red Cell Distribution Width 13.4 % (11.0-16.0); White Blood Count 10.8 X10*3/uL (4.8-10.8)
[2024-05-15 14:02] LABS: Erythrocyte Sedimentation Rate 44 MM/HR (0-15)
[2024-05-15 21:32] LABS: Alanine Aminotransferase 31 U/L (0-40); Alkaline Phosphatase 87 U/L (39-117); Anion Gap 19 (12-20); Aspartate Amino Transferase 25 U/L (5-37); Bilirubin Total 0.5 mg/dL (0.0-1.0); Blood Urea Nitrogen 35 mg/dL (9-16); Calcium 9.6 mg/dL (8.4-10.2); Carbon Dioxide 15 mmol/L (22-29); Chloride 109 mmol/L (96-108); Estimated Glomerular Filt Rate 44; Glucose Random 150 mg/dL (60-115); Magnesium 2.2 mg/dL (1.6-2.6); Potassium 4.3 mmol/L (3.3-5.1); Sodium 139 mmol/L (135-145); Total Protein 7.7 g/dL (6.5-8.0)
== END 2024-05-15 12:21 | disposition home or self-care (01) ==
LOC: HO.LAB 12:20
PROVIDERS: PCP Family Medicine; Visit Provider Family Medicine
DX: R53.83 Other fatigue (principal); R06.02 Shortness of breath; R53.1 Weakness
CPT/HCPCS: 36415; 80053; 83735; 85025; 85652

== ENCOUNTER 2024-06-24 10:47 | Outpatient (REF) | payer MEDICARE, MEDICAID, SELFPAY ==
[2024-06-24 13:11] LABS: MANUAL DIFF FLAG NO
[2024-06-24 13:15] LABS: Basophils Absolute Auto 0.1 X10*3/uL (0.0-0.2); Basophils Percent Auto 0.5 % (0-2); Eosinophils Absolute Auto 0.2 X10*3/uL (0.0-0.4); Eosinophils Percent Auto 1.7 % (0-4); Hematocrit 37.5 % (42.0-52.0); Hemoglobin 12.9 g/dl (14.0-18.0); Imm Gran Abs Auto 0.03 X10*3/uL (0.00-0.03); Imm Gran Pct Auto 0.3 % (0.0-0.4); Lymphocytes Absolute Auto 2.6 X10*3/uL (1.2-4.9); Lymphocytes Percent Auto 27.9 % (20-40); Mean Corpuscular HGB Conc 34.4 g/dl (31.0-36.0); Mean Corpuscular Hemoglobin 28.1 pg (27.0-33.0); Mean Corpuscular Volume 81.7 fL (80.0-98.0); Mean Platelet Volume 8.5 fL (9.4-12.4); Monocytes Absolute Auto 0.9 X10*3/uL (0.1-1.2); Monocytes Percent Auto 9.7 % (2-11); Neutrophils Absolute Auto 5.5 x10*3/uL (2.0-8.3); Neutrophils Percent Auto 59.9 % (45-73); Platelet Count 255 X10*3/uL (160-400); Red Blood Count 4.59 X10*6/uL (4.60-5.80); Red Cell Distribution Width 14.1 % (11.0-16.0); White Blood Count 9.2 X10*3/uL (4.8-10.8)
[2024-06-24 13:32] LABS: Alanine Aminotransferase 22 U/L (0-40); Anion Gap 14 (12-20); Aspartate Amino Transferase 23 U/L (5-37); Blood Urea Nitrogen 33 mg/dL (9-16); Carbon Dioxide 22 mmol/L (22-29); Chloride 108 mmol/L (96-108); Estimated Glomerular Filt Rate 51; Iron 100 mcg/dL (45-160); Magnesium 1.9 mg/dL (1.6-2.6); Percent Iron Saturation 43 % (15-50); Potassium 4.4 mmol/L (3.3-5.1); Sodium 140 mmol/L (135-145); Total Iron Binding Capacity 233 mcg/dL (228-428); Unsaturated Iron Binding 133 ug/dL
== END 2024-06-24 10:48 | disposition home or self-care (01) ==
LOC: HO.10HDL 10:47
PROVIDERS: Visit Provider Family Medicine
DX: I10 Essential (primary) hypertension (principal); D50.9 Iron deficiency anemia, unspecified; I50.30 Unspecified diastolic (congestive) heart failure; E78.00 Pure hypercholesterolemia, unspecified; Z79.899 Other long term (current) drug therapy
CPT/HCPCS: 36415; 80051; 82565; 83540; 83735; 84450; 84460; 84520; 85025

== ENCOUNTER 2024-08-03 10:24 | Outpatient (REF) | payer MEDICARE, MEDICAID, SELFPAY ==
[2024-08-03 10:37] LABS: MANUAL DIFF FLAG NO
[2024-08-03 10:45] LABS: Basophils Percent Auto 0.4 % (0-2); Eosinophils Absolute Auto 0.1 X10*3/uL (0.0-0.4); Eosinophils Percent Auto 0.8 % (0-4); Hematocrit 39.2 % (42.0-52.0); Hemoglobin 13.1 g/dl (14.0-18.0); Imm Gran Abs Auto 0.03 X10*3/uL (0.00-0.03); Imm Gran Pct Auto 0.3 % (0.0-0.4); Lymphocytes Absolute Auto 2.2 X10*3/uL (1.2-4.9); Lymphocytes Percent Auto 23.3 % (20-40); Mean Corpuscular HGB Conc 33.4 g/dl (31.0-36.0); Mean Corpuscular Hemoglobin 27.7 pg (27.0-33.0); Mean Corpuscular Volume 82.9 fL (80.0-98.0); Mean Platelet Volume 8.6 fL (9.4-12.4); Monocytes Absolute Auto 0.9 X10*3/uL (0.1-1.2); Monocytes Percent Auto 9.8 % (2-11); Neutrophils Percent Auto 65.4 % (45-73); Platelet Count 281 X10*3/uL (160-400); Red Blood Count 4.73 X10*6/uL (4.60-5.80); White Blood Count 9.2 X10*3/uL (4.8-10.8)
[2024-08-03 10:53] LABS: Estimated Average Glucose 117 mg/dL; Hemoglobin A1C 128.5914 umol/L; Hemoglobin A1c % 5.7 % (<6.0); Total Hemoglobin (HGBA1C) 3352.4401 umol/L
[2024-08-03 11:13] LABS: Alanine Aminotransferase 22 U/L (0-40); Anion Gap 16 (12-20); Aspartate Amino Transferase 23 U/L (5-37); Blood Urea Nitrogen 32 mg/dL (9-16); Carbon Dioxide 21 mmol/L (22-29); Chloride 106 mmol/L (96-108); Cholesterol 143 mg/dL (<200); Estimated Glomerular Filt Rate 44; Glucose Fasting 121 mg/dL (60-99); HDL Cholesterol 38 mg/dL (>40); Iron 80 mcg/dL (45-160); LDL Cholesterol Calculated 42 mg/dL (<100); Percent Iron Saturation 33 % (15-50); Potassium 4.5 mmol/L (3.3-5.1); Sodium 138 mmol/L (135-145); Total Iron Binding Capacity 239 mcg/dL (228-428); Triglycerides 319 mg/dL (<150); Unsaturated Iron Binding 159 ug/dL
== END 2024-08-03 10:25 | disposition home or self-care (01) ==
LOC: HO.10HDL 10:24
PROVIDERS: Visit Provider Family Medicine
DX: D50.9 Iron deficiency anemia, unspecified (principal); I10 Essential (primary) hypertension; E11.9 Type 2 diabetes mellitus without complications; E78.00 Pure hypercholesterolemia, unspecified; Z79.899 Other long term (current) drug therapy
CPT/HCPCS: 36415; 80051; 80061; 82550; 82565; 82947; 83036; 83540; 84450; 84460; 84520; 85025

== ENCOUNTER 2024-11-17 09:42 | Outpatient (REF) | payer MEDICARE, MEDICAID, SELFPAY ==
[2024-11-17 10:21] LABS: MANUAL DIFF FLAG NO
[2024-11-17 10:27] LABS: Basophils Percent Auto 0.4 % (0-2); Eosinophils Absolute Auto 0.1 X10*3/uL (0.0-0.4); Hematocrit 43.4 % (42.0-52.0); Hemoglobin 13.8 g/dl (14.0-18.0); Imm Gran Abs Auto 0.02 X10*3/uL (0.00-0.03); Imm Gran Pct Auto 0.2 % (0.0-0.4); Lymphocytes Absolute Auto 2.5 X10*3/uL (1.2-4.9); Lymphocytes Percent Auto 27.6 % (20-40); Mean Corpuscular HGB Conc 31.8 g/dl (31.0-36.0); Mean Corpuscular Hemoglobin 26.1 pg (27.0-33.0); Mean Corpuscular Volume 82.2 fL (80.0-98.0); Mean Platelet Volume 8.4 fL (9.4-12.4); Monocytes Absolute Auto 0.9 X10*3/uL (0.1-1.2); Monocytes Percent Auto 9.7 % (2-11); Neutrophils Absolute Auto 5.5 x10*3/uL (2.0-8.3); Neutrophils Percent Auto 61.1 % (45-73); Platelet Count 244 X10*3/uL (160-400); Red Blood Count 5.28 X10*6/uL (4.60-5.80); Red Cell Distribution Width 14.2 % (11.0-16.0)
[2024-11-17 10:51] LABS: Alanine Aminotransferase 16 U/L (0-40); Anion Gap 14 (12-20); Aspartate Amino Transferase 27 U/L (5-37); Blood Urea Nitrogen 23 mg/dL (9-16); Carbon Dioxide 23 mmol/L (22-29); Chloride 109 mmol/L (96-108); Estimated Glomerular Filt Rate > 60; Glucose Fasting 110 mg/dL (60-99); Iron 55 mcg/dL (45-160); Percent Iron Saturation 25 % (15-50); Potassium 4.3 mmol/L (3.3-5.1); Sodium 142 mmol/L (135-145); Total Iron Binding Capacity 217 mcg/dL (228-428); Unsaturated Iron Binding 162 ug/dL
[2024-11-17 10:59] LABS: Estimated Average Glucose 111 mg/dL; Hemoglobin A1C 129.2472 umol/L; Hemoglobin A1c % 5.5 % (<6.0); Total Hemoglobin (HGBA1C) 3512.8686 umol/L
== END 2024-11-17 09:43 | disposition home or self-care (01) ==
LOC: HO.10HDL 09:42
PROVIDERS: Visit Provider Family Medicine
DX: D50.9 Iron deficiency anemia, unspecified (principal); I10 Essential (primary) hypertension; E78.00 Pure hypercholesterolemia, unspecified; E11.9 Type 2 diabetes mellitus without complications
CPT/HCPCS: 36415; 80051; 82550; 82565; 82947; 83036; 83540; 84450; 84460; 84520; 85025

== ENCOUNTER 2025-03-15 08:31 | Outpatient (REF) | payer MEDICARE, MEDICAID, SELFPAY ==
[2025-03-15 10:20] LABS: MANUAL DIFF FLAG NO
[2025-03-15 10:51] LABS: Basophils Percent Auto 0.4 % (0-2); Eosinophils Absolute Auto 0.1 X10*3/uL (0.0-0.4); Eosinophils Percent Auto 1.1 % (0-4); Hemoglobin 13.5 g/dl (14.0-18.0); Imm Gran Abs Auto 0.02 X10*3/uL (0.00-0.03); Imm Gran Pct Auto 0.3 % (0.0-0.4); Lymphocytes Percent Auto 24.7 % (20-40); Mean Corpuscular HGB Conc 32.1 g/dl (31.0-36.0); Mean Corpuscular Hemoglobin 25.9 pg (27.0-33.0); Mean Corpuscular Volume 80.5 fL (80.0-98.0); Mean Platelet Volume 8.9 fL (9.4-12.4); Monocytes Absolute Auto 0.8 X10*3/uL (0.1-1.2); Neutrophils Absolute Auto 5.1 x10*3/uL (2.0-8.3); Neutrophils Percent Auto 63.5 % (45-73); Platelet Count 207 X10*3/uL (160-400); Red Blood Count 5.22 X10*6/uL (4.60-5.80); Red Cell Distribution Width 15.9 % (11.0-16.0)
[2025-03-15 11:03] LABS: Estimated Average Glucose 117 mg/dL; Hemoglobin A1C 133.8263 umol/L; Hemoglobin A1c % 5.7 % (<6.0); Total Hemoglobin (HGBA1C) 3434.5526 umol/L
[2025-03-15 11:15] LABS: Alanine Aminotransferase 16 U/L (0-40); Albumin Level 4.3 g/dL (3.5-5.0); Alkaline Phosphatase 73 U/L (39-117); Anion Gap 12 (12-20); Aspartate Amino Transferase 30 U/L (5-37); Bilirubin Total 0.6 mg/dL (0.0-1.0); Blood Urea Nitrogen 39 mg/dL (9-16); Calcium 9.2 mg/dL (8.4-10.2); Carbon Dioxide 25 mmol/L (22-29); Chloride 108 mmol/L (96-108); Estimated Glomerular Filt Rate 52; Glucose Fasting 104 mg/dL (60-99); Potassium 4.5 mmol/L (3.3-5.1); Sodium 140 mmol/L (135-145); Total Protein 7.2 g/dL (6.5-8.0)
[2025-03-16 08:49] LABS: NT-proBNP 3600 pg/mL (<450)
== END 2025-03-15 08:32 | disposition home or self-care (01) ==
LOC: HO.10HDL 08:31
PROVIDERS: Visit Provider Family Medicine
DX: I50.9 Heart failure, unspecified (principal); E11.9 Type 2 diabetes mellitus without complications; D50.9 Iron deficiency anemia, unspecified; E78.00 Pure hypercholesterolemia, unspecified; Z79.899 Other long term (current) drug therapy
CPT/HCPCS: 36415; 80053; 82550; 83036; 83880; 85025

== ENCOUNTER 2025-07-08 11:21 | Outpatient (AMB) | payer MEDICARE, MEDICAID, SELFPAY ==
--- NOTE | 2025-07-08 11:21 | A.OFFPC_ITS ---
Vital Signs 07/08/25 11:25 Height 5 ft 9 in Weight 183 lb BMI 27.0 BP 120/62 Blood Pressure Location Rt brachial Position Sitting Respiration 18 Pulse 59 Pulse Source Pulse Oximeter Pulse Oximetry (%) 97 Oxygen Delivery Method Room Air Intake Visit Reasons: f/u [place] [employer] Required: No Accompanied by: Self / Same As Patient Allergies No Known Allergies (No Known Allergies*) Allergy (Verified 07/08/25 11:22) Tobacco use date assessed: 07/08/25 Fall risk assessment: No Falls in past year Last assessed Fall Risk: 07/08/25 Dental Screening Did you have a dental visit in the last 12 months?: No Did you have a dental problem in the last 6 months where you did not have access to dental care?: No Was dental information given to patient?: Yes HPI HPI Comments History of Present Illness Details The patient is a 80-year-old male presenting with concerns related to his cardiovascular status and management of ongoing medications. He reports a history of coronary artery disease which necessitated a triple coronary artery bypass approximately 23-24 years ago. Since then, he has had a stent placement a few years ago and is currently taking several medications for hypertension and cholesterol management. The patient is prescribed a statin, atorvastatin, though he is unsure about his cholesterol values despite being reassured that his bad cholesterol is low but has been informed that his triglycerides are elevated. The patient admits to using Lasix (furosemide), isosorbide mononitrate, hydrochlorothiazide, metoprolol, nitroglycerin, and aspirin, and mentions notably frequent urination, which he attributes to his diuretics and extensive water intake. He also reports occasional chest pains and shortness of breath, though they have not been frequent?these discomforts prompted past hospital evaluations, which culminated in a GERD diagnosis treated with omeprazole. The patient has an extensive surgical history that includes prior tonsillectomy in childhood, a quadruple leg fracture necessitating surgical intervention, a history of prostate removal, and longstanding cardiovascular interventions. He expresses concern about future health maintenance given his last cardiology evaluation was three years ago. The patient mentions occasional swelling in his right leg, attributing it to prior fracture and surgical repairs. Medical History: - Coronary Artery Disease - Essential Hypertension - Hyperlipidemia - Gastroesophageal Reflux Disease (GERD) - History of Prostatectomy - History of tobacco use, ceased 40 year s ago Surgical History: - Coronary Artery Bypass Graft (CABG) x3 - Tonsillectomy - Prostatectomy - Surgical repair of right leg fracture Medications: - Atorvastatin for hyperlipidemia - Lasix 40 mg for diuresis - Isosorbide mononitrate for blood press ure - Hydrochlorothiazide for hypertension - Metoprolol for cardiovascular health - Nitroglycerin for chest pain - Aspirin as a blood thinner - Omeprazole for GERD Family History: - Family history of heart disease (mothe r and father) - No family history of diabetes or cance r Diagnostic Results: - Previous cardiac evaluations indicate mild reduction in heart function three years ago - Blood work (February): Hemoglobin, electrol ytes, and cholesterol within acceptable limits; previous high triglycerides noted Social: - Lives alone; takes responsibility for medication management despite reduced vision - Former smoker, quit 40 years ago after 20 years of usage - Quit alcohol consumption 40 years ago - Reports drinking a lot of water [facility] Medical History (Updated 07/08/25 @ 11:58 by Varun Roche MD) Hyperlipidemia Chronic GERD Heart failure with reduced ejection fraction History of adenomatous polyp of colon Prostate cancer Obstructive sleep apnea on CPAP Other and unspecified hyperlipidemia Essential hypertension Atherosclerotic cardiovascular disease Surgical History (Updated 07/08/25 @ 11:57 by Varun Roche MD) Hx of colonoscopy Status post coronary artery bypass graft History of coronary artery bypass graft x 3 (~2003) Family History Father No problems noted. Mother No problems noted. Social History Housing: Apartment Alcohol intake: former Patient Tobacco Use Status: Former Tobacco user e-Cigarette/Vaping Use: Never Used service: No Current occupational status: retired Questionnaire PHQ-9 Over the last 2 weeks, how often have you been bothered by any of the following problems? 1. Little interest or pleasure in doing things: not at all 2. Feeling down, depressed, or hopeless: not at all 3. Trouble falling or staying asleep, or sleeping too much: not at all 4. Feeling tired or having little energy: not at all 5. Poor appetite or overeating: not at all 6. Feeling bad about yourself - or that you are a failure or have let yourself or your family down: not at all 7. Trouble concentrating on things, such as reading the newspaper or watching television: not at all 8. Moving or speaking so slowly that other people could have noticed. Or the opposite - being so fidgety or restless that you have been moving around a lot more than usual: not at all 9. Thoughts that you would be better off or of hurting yourself in some way: not at all Total score: 0 Depression Screening Interpretation: Negative Depression Screening Done: Yes 95614 - PHQ-9 Billing: Yes Source: Developed by Drs. Rupert Montana, Paula Norton, Karl Iniguez and colleagues, with an educational la from [employer]. Thrive Questionnaire Date Thrive assessed: 07/08/25 I am a: Patient What is your living situation today?: I have a steady place to live Within the past 12 months, did the food you bought not last and you didn't have the money to get more?: Never true Within the past 12 months, did you worry whether your food would run out before you got money to buy more?: Never true Do you have trouble paying for medicines?: No Do you have trouble getting transportation to medical appointments?: No Do you have trouble paying your heating and electricity bill?: No Do you have trouble taking care of your child, family member or friend?: No Do you have trouble with day-to-day activities such as bathing, preparing meals, shopping, managing finances, etc.?: No Are you currently unemployed and looking for a job?: No Are you interested in more education?: No THRIVE Score: 0 AUDIT C Alcohol Use Questionnaire (AUDIT-C) 1. How often do you have a drink containing alcohol?: Never 3. How often do you have six or more drinks on one occasion?: Never Total Score: 0 Score Reviewed/Action Taken: Yes CARLOS-7 AMB Questionnaire CARLOS-7 Date CARLOS - 7 assessed: 07/08/25 Feeling nervous, anxious, or on edge: 0 = Not at all Not being able to stop or control worryin = Not at all Worrying too much about different things: 0 = Not at all Trouble relaxin = Not at all Being so restless that it is hard to sit still: 0 = Not at all Becoming easily annoyed or irritable: 0 = Not at all Feeling afraid as if something awful might happen: 0 = Not at all Total CARLOS-7 score (0-4 normal; 5-9 mild; 10-14 moderate; 15-21 severe): 0 Source: Developed by Drs. Rupert Montana, Paula Norton, Karl Iniguez and colleagues, with an educational la from [employer]. CARLOS-7 Assessment Billing CARLOS-7 Assessment Tool: CARLOS-7 Assessment 62907 Review of Systems Const Details: - Cardiovascular: Reports rare occasional chest pain, shortness of breath - Gastrointestinal: GERD history with episodic management - Genitourinary: Reports frequent urination - Musculoskeletal: Denies current leg pain from prior fracture, but reports swelling - Respiratory: Denies persistent shortness of breath or chronic cough All systems reviewed & are unremarkable except as reviewed in HPI and above Physical exam (Primary Care) Vital Signs: Last Vital Signs Pulse 59 07/08/25 11:25 Resp 18 07/08/25 11:25 BP 120/62 07/08/25 11:25 Pulse Ox 97 07/08/25 11:25 Oxygen Delivery Method Room Air 07/08/25 11:25 BMI result Body Mass Index 27.0 Tobacco/Smoking Status: Tobacco use Status Tobacco use date assessed 07/08/25 07/08/25 11:28 Patient Tobacco Use Status Former Tobacco user 07/08/25 11:28 e-Cigarette/Vaping Use Never Used 07/08/25 11:28 Depression Screening Interpretation: Negative Const Other: General: +Alert and oriented, Well nourished, No acute distress. Eye: Pupils are equal, round and reactive to light, Intact accommodation, Extraocular movements are intact, Normal conjunctiva, Vision unchanged. HENT: Normocephalic, Atraumatic, Tympanic membranes are clear, Normal hearing, O ral mucosa is moist, No pharyngeal erythema, Ear canals patent. Respiratory: Lungs CTA bilaterally, No wheeze, Respirations are non-labored. Cardiovascular: Regular rate, Regular rhythm, S1 auscultated, S2 auscultated, No murmur, Good pulses equal in all extremities, Normal peripheral perfusion, Mild swelling on the right leg. Gastrointestinal: Soft, Non-tender, Non-distended, Normal bowel sounds, No organomegaly. Musculoskeletal: Normal range of motion, Normal strength, No tenderness, Swelling on the right leg, No deformity, Normal gait. Integumentary: Warm, Dry, [place], Intact. Neurologic: Alert, Oriented, Normal sensory, Normal motor function, No focal defects, Cranial Nerves II-XII are grossly intact, Normal deep tendon reflexes. Psychiatric: Cooperative, Appropriate mood & affect, Normal judgment. Coding Level of Care Code New Pt Level 4 (31277) Complex EM visit Add On G2211 Diagnoses Heart failure with reduced ejection fraction I50.20 Hypertension, unspecified type I10 Hypertension type: unspecified Obstructive sleep apnea on CPAP G47.33; Z99.89 History of coronary artery bypass graft x 3 Z95.1 Chronic GERD K21.9 Hyperlipidemia, unspecified hyperlipidemia type E78.5 Hyperlipidemia type: unspecified Additional Codes PHQ-9 - 55629 - PHQ-9 Billing: Yes ([id number]) CARLOS-7 Assessment Billing - CARLOS-7 Assessment Tool: CARLOS-7 Assessment 01387 ([id number]) Assessment & Plan Assessment & Plan (1) Heart failure with reduced ejection fraction: Comment: On review of patient's echo from 2021 demonstrates a reduced EF of 40-45%. At that time he was following with Cardiology. -currently being managed on Lasix 40 mg daily, isosorbide mononitrate 60 mg daily, metoprolol tartrate 50 mg daily and p.r.n. nitroglycerin (reports he does not have to use) and Farxiga -we will obtain a repeat echo given patient does have some 1+ swelling in his right lower extremity to evaluate cardiac function Code(s): I50.20 - Unspecified systolic (congestive) heart failure Category: Medical (2) Hypertension: Comment: Home medications: Coreg, hydrochlorothiazide, isosorbide mononitrate -pressure is well controlled in clinic -reinforced the importance of medication adherence and dietary important Code(s): I10 - Essential (primary) hypertension Category: Medical Qualifiers: Hypertension type: unspecified Qualified Code(s): I10 - Essential (primary) hypertension (3) Obstructive sleep apnea on CPAP: Comment: Adherent to CPAP and continue the same Code(s): G47.33 - Obstructive sleep apnea (adult) (pediatric); Z99.89 - Dependence on other enabling machines and devices Category: Medical (4) History of coronary artery bypass graft x 3: Onset Date: ~2003 Comment: 2023 however has had no follow-up since then -we will obtain an echo to evaluate Code(s): Z95.1 - Presence of aortocoronary bypass graft Category: Surgical (5) Chronic GERD: Comment: Reports was recently admitted to the hospital where he was evaluated for guard and was subsequently placed on omeprazole 20 mg b.i.d. with improvement in symptoms. Advised continuing the same in [employer] that worsen this condition Code(s): K21.9 - Gastro-esophageal reflux disease without esophagitis Category: Medical (6) Hyperlipidemia: Comment: Currently on atorvastatin 40 mg daily with most recent lipid panel from February of this year demonstrating an unremarkable lipid panel except for an elevated triglyceride panel. Therefore we will re-obtain triglyceride panel at next visit and consider decision of fenofibrate Code(s): E78.5 - Hyperlipidemia, unspecified Category: Medical Qualifiers: Hyperlipidemia type: unspecified Qualified Code(s): E78.5 - Hyperlipidemia, unspecified Plan Today, I discussed the patient's ongoing issues, predominantly related to his cardiovascular health and management of existing conditions. Given the mild reduction in heart function reported three years ago, I have advised an echocardiogram to reassess cardiac status. I informed the patient about the importance of controlling his triglyceride levels and maintaining adherence to his prescribed medications, including the timing of omeprazole to manage GERD effectively. I have ensured he understands the procedure for receiving follow-up appointments, despite the transition to remote notifications. I also advised contacting the clinic if his symptoms worsen or if he has any new concerns prior to his scheduled follow-up in three months. Patient Instructions: - Continue all current medications as prescribed, especially heart and blood pressure medications. - Follow guidelines on omeprazole intake. - Increase water intake further only if recommended. - Expect a letter for next follow-up appointments, and attend scheduled echocardiogram. - Monitor and report any sudden increase in leg swelling or more frequent chest pains.
[2025-07-08 11:25] VITALS: BP 120/62; PULSE 59; RESP 18; O2SAT 97; BMI 27.0
== END 2025-07-08 11:59 | disposition home or self-care (01) ==
PROVIDERS: PCP Family Medicine; Visit Provider Student in an Organized Health Care Education/Training Program
DX: I11.0 Hypertensive heart disease with heart failure (principal); I50.20 Unspecified systolic (congestive) heart failure; G47.33 Obstructive sleep apnea (adult) (pediatric); Z99.89 Dependence on other enabling machines and devices; Z95.1 Presence of aortocoronary bypass graft; K21.9 Gastro-esophageal reflux disease without esophagitis; E78.5 Hyperlipidemia, unspecified

== ENCOUNTER → 2025-07-08 11:21 | Outpatient (BNVA) | payer MEDICARE, MEDICAID, SELFPAY | PROVIDERS: PCP Family Medicine; Visit Provider Student in an Organized Health Care Education/Training Program | DX: I11.0 Hypertensive heart disease with heart failure (principal); I50.20 Unspecified systolic (congestive) heart failure; G47.33 Obstructive sleep apnea (adult) (pediatric); K21.9 Gastro-esophageal reflux disease without esophagitis; E78.5 Hyperlipidemia, unspecified; Z79.899 Other long term (current) drug therapy; Z95.1 Presence of aortocoronary bypass graft; Z99.89 Dependence on other enabling machines and devices; Z13.31 Encounter for screening for depression; Z13.39 Encounter for screening examination for other mental health and behavioral disorders | CPT/HCPCS: 96127; 99202 ==

== ENCOUNTER → 2025-10-07 08:00 | Outpatient (REF) | payer MEDICARE, MEDICAID, SELFPAY ==
--- NOTE | 2025-10-07 08:03 | CA_ITS ---
Transthoracic Echocardiogram Patient (Last, First, Middle): Luciano Gastelum, Gender: M Date of : 1945 Age: 80 Procedure Date: 10/07/2025 Procedure Type: Transthoracic Echocardiogram Location: OP Height: 175. cm Weight: 83.46 kg BSA: 1.99 m2 Heart Rate: 58 bpm BP: 150 / 70 mmHg Mining Engineer: ANTONIO Referring MD: Varun Roche MD [employer] Custodian: Jayden Patel MD Symptoms: I50.20 - Unspecified systolic (congestive) heart failure Study Quality: Fair ECG Rhythm: Sinus Conclusions: - 1. Normal LV ejection fraction 55-60% with regional wall motion abnormality consistent with coronary artery disease with impaired relaxation filling pattern 2. Cardiac valvular Dopplers within normal limits 3. Normal RV systolic pressure 4. No gross pericardial effusion Findings Left Ventricle Normal left ventricular size, thickness, and systolic function. The visually estimated ejection fraction is between 55-60%. Spectral Doppler is indicative of an impaired relaxation filling pattern. E/E prime ratio is between 8 and 15 consistent with indeterminate filling pressures. Wall Motion Rest Echo Findings The inferoseptal wall, the basal inferior, mid inferior, and basal inferolateral segments are hypokinetic. All other scored wall segments showed normal motion. Right Ventricle Normal right ventricular cavity size and systolic function. Atria The left atrium is moderately dilated. There is no evidence of interatrial shunt. The right atrium is likely dilated. Aortic Valve There is a doming trileaflet aortic valve. There is mild thickening of the aortic valve. There is no aortic valve stenosis. There is no aortic valve regurgitation. Mitral Valve There is mild anterior and posterior mitral leaflet thickening. There is mild anterior and mild posterior mitral annular calcification. There is mild mitral annular calcification. There is trace mitral valve regurgitation. There is no mitral valve stenosis. Pulmonic Valve The pulmonic valve is likely normal. There is no pulmonic valve regurgitation. Tricuspid Valve Normal tricuspid valve structure. There is mild tricuspid valve regurgitation. The right ventricular systolic pressure is normal. The right ventricular systolic pressure is 34 mmHg. Normal right atrial pressure. There is no evidence of pulmonary hypertension. Great Vessels All visible segments of the aorta are normal in size. The pulmonary artery was not well visualized. There is no dilatation of the ascending aorta measuring 3.00 cm. Venous The inferior vena cava is normal in size and collapses greater than 50% with inspiration. Pericardium/Pleural There is no evidence of pericardial effusion. Prior Study Comparison Changes noted compared to prior study dated: 07/20/2022. LV ejection fraction seems to have improved Measurements 2D Linear Measurements IVSd: 1.08 0.6-0.9/0.6-1.0 cm LVIDd: 4.66 3.9-5.3/4.2-5.9 cm LVIDd Index: 2.34 2.4-3.2/2.2-3.1 cm/m2 LVIDs: 3.54 2.0-3.6 cm LVPWd: 0.94 0.7-1.1 cm LA Diam: 4.40 2.7-3.8/3.0-4.0 cm LAIDs Index: 2.21 1.5-2.3 cm/m2 LV Mass: 204.76 67-162/88-224 g LV Mass Index: 102.89 43-95/49-115 g/m2 LVOT Diam: 2.00 3.0+(-)1.3 cm 2D Systolic Function EF 4C: 57.70 >55% EF 2C: 55.70 >55% EF BiP: 56.70 >55% Mitral Valve MV Pk E: 0.96 MV PK A: 0.93 MV Decel Time: 212.00 E/A: 1.00 E'Lateral: 5.87 E'Medial: 5.87 E/E' Med: 16.30 E/E' Lat: 16.30 PHT: 62.00 MVA PHT: 3.55 Decel Emmet: 4.50 Aortic Valve AoV Pk Karson: 1.21 AoV Mn Karson: 0.89 AoV VTI: 0.31 AoV Pk Grad: 6.00 Aov Mn Grad: 3.00 JR Cont.VTI: 2.29 AI Pk Karson: 3.44 AI Emmet: 2.07 LVOT LVOT Pk Karson: 0.95 LVOT Mn Karson: 0.62 LVOT VTI: 0.23 LVOT Pk Grad: 4.00 LVOT Mn Grad: 2.00 LVOT Diam: 2.00 LVOT Area: 3.14 Diastolic Function MV Pk E: 0.96 MV Pk A: 0.93 E/A: 1.00 E'Medial: 5.87 E/E' Med: 16.30 E' Laterial: 5.87 E/E' Lat: 16.30 Right Ventricle TAPSE (mm): 17.40 TVS' Karson: 6.68 Tricuspid Valve TR Pk Karson: 2.77 TR Pk Grad: 31.00 RA Press: 3.00 RVSP: 34.00 Great Vessels Aorta Sinus of Valsalva: 3.40 2.0-3.5 cm Ao Asc: 3.00 2.1-3.4 cm Pulmonary Valve PV Pk Karson: 0.90 Peak PV Grad: 3.00 Updated in Other Vendor System with Status of Final Jayden Patel MD electronically signed on 10/08/2025 4:58:22 PM with status of Final
== END ==
LOC: HO.CARD 08:00
PROVIDERS: PCP Student in an Organized Health Care Education/Training Program; Visit Provider Student in an Organized Health Care Education/Training Program
DX: I50.20 Unspecified systolic (congestive) heart failure (principal)
CPT/HCPCS: 93306

== ENCOUNTER → 2025-10-07 08:03 | Outpatient (BNV) | payer MEDICARE, MEDICAID, SELFPAY | PROVIDERS: PCP Student in an Organized Health Care Education/Training Program; Visit Provider Internal Medicine Cardiovascular Disease | DX: I50.20 Unspecified systolic (congestive) heart failure (principal) | CPT/HCPCS: 93306 ==